=== PATIENT | male | born 1930 | race Caucasian/White ===

== ENCOUNTER 2017-09-02 14:04 | Observation (INO) | payer MEDICARE, OTHER ==
[2017-09-02] MEDS ORDERED: NS 0.9% 1000 ML* 1,000 ML IV ONE ×2 (14:45→15:33)
[2017-09-02] MEDS ORDERED: Ondansetron INJ* 2 MG/ML VIAL IV ONE (14:45)
[2017-09-02 18:02] LABS: Urine Appearance Cloudy; Urine Blood 1+ (Negative); Urine Color Yellow; Urine Ketones Negative (Negative); Urine Protein Negative (Negative); Urine Specific Gravity 1.021 (1.010-1.030); Urine Urobilinogen Negative (Negative)
[2017-09-02] MEDS ORDERED: cefTRIAXone(*) 1 GM in NS 0.9% 50 ML* 50 ML IVPB ONE (18:48)
[2017-09-02] MEDS ORDERED: Acetaminophen TAB* 325 MG PO PRN (20:04)
[2017-09-02] MEDS ORDERED: Ondansetron INJ* 2 MG/ML VIAL IV PRN (20:04)
[2017-09-02] MEDS: NS 0.9% 1000 ML* 1,000 ML IV SCH (20:33)
[2017-09-02] MEDS ORDERED: Tamsulosin CAP* 0.4 MG PO SCH (21:00)
--- NOTE | 2017-09-02 21:27 | ED ---
Elli Barcenas Gabriel, beckied for John Murillo on 09/02/17 at 1951 . Progress - Progress Note Progress Note: This patient was signed out from Dr. Cooney, pending disposition, awaiting labs. The patients condition is fair and will be admitted to [facility] with Dx of UTI , dehydration, failure to thrive, and dementia. Initially the patients family did not want lab work done but later they consented.labs pending. Course/Dx - Course Course Of Treatment: UA obtained and patient will admitted with follow up from hospitalist. - Diagnoses Provider Diagnoses: Failure to thrive, Dementia, UTI (urinary tract infection), Dehydration - Provider Notifications Discussed Care Of Patient With: Gm Coelho Time Discussed With Above Provider: 19:55 Instructed by Provider To: Admit As Inpatient The documentation as recorded by the Elli hunt Gabriel accurately reflects the service I personally performed and the decisions made by , John Murillo.
[2017-09-02] MEDS ORDERED: Heparin VIAL(*) 5000 UNITS/ML VIAL (FIVE THOUSAND) SUBCUT SCH (22:00)
[2017-09-03] MEDS: NS 0.9% 1000 ML* 1,000 ML IV SCH (00:18)
--- NOTE | 2017-09-03 00:41 | HP ---
CC: Dr. Gayle Hughes * ADMISSION HISTORY AND PHYSICAL: DATE OF ADMISSION: 09/02/17 TIME OF EVALUATION: 8:00 p.m. PRIMARY CARE PROVIDER: Dr. Gayle Hughes. CHIEF COMPLAINT: (As per daughter, Dalia) lethargic, increased confusion and weakness x1 day. HISTORY OF PRESENT ILLNESS: Mr. Tim is a demented elderly gentleman who lives in [place] with his daughter, who was brought by his daughter by car to the emergency room for progressive weakness and lethargic and confusion relative to his baseline. The patient does have dementia at baseline and is a poor communicator owing in part to his extremely poor hearing, who has not been himself as per his daughter. He is not taking his normal amount of fluids. He has a diminished appetite. He has a low-grade fever at home. He is subjectively dehydrated. He is making less urine than normal and it is concentrated. The patient is extremely afraid of needles pursuant to his PTSD from his remote history and related healthcare encounters. In the emergency room, his daughter only agreed to a urinalysis, which did show nitrites and leukocyte esterase and white blood cells and bacteria all together consistent with a urinary tract infection. At that time, she agreed for IV access and observation placement. The patient has been referred to the hospitalist service for rehydration and IV antibiotics. Mr. Tim cannot give much medical history, but in reviewing his chart, he has other medical problems including dementia, hyperlipidemia, hypertension, coronary disease, status post IL earlier this year and was stented down in [place]. The patient has stopped taking Plavix back in June of 2017, but takes the other medications detailed below. PAST MEDICAL HISTORY: 1. CAD/IL, history of IL in [facility] in February 2017. He did have angioplasty and a drug eluting stent at that time and completed 6 months of Plavix therapy. 2. Dementia. 3. Hyperlipidemia. 4. Hypertension. 5. History of multiple hernia repairs. HOME MEDICATIONS: 1. Finasteride 5 mg by mouth daily. 2. Flomax 0.4 mg by mouth daily. 3. Aspirin 81 mg by mouth daily. 4. Pravastatin 80 mg by mouth daily. ALLERGIES: No known drug allergies. FAMILY HISTORY: Reviewed, but noncontributory in this elderly man who presents to the hospital with UTI and altered mental status. SOCIAL HISTORY: The patient is a [employer] vet. He quit smoking at age 52 over 30 years ago and smoked heavily before that. He has not drank alcohol in years. He is a DNR. His daughter is Dalia Kathleen. She is the surrogate decision maker. She confirms he is a DNR and DNI. She would like to be involved in any medication change decision. REVIEW OF SYSTEMS: A review of 14 systems was done at the bedside by questioning the patient's daughter and by reviewing his chart. There were pertinent positives other than what I mentioned in the past medical history and history of present illness. PHYSICAL EXAMINATION GENERAL APPEARANCE: Elderly man, appears dehydrated with parched skin. He is unkempt and dishevelled. He is demented in appearance. He has poor eye contact. VITAL SIGNS: Temperature 98.6 degrees Fahrenheit temporally at 14:11 hours, recheck pending. Pulse 50s to 60s, respirations 16, oxygen saturation 96% on room air. Blood pressure ranged between low 100s over 50s to 140s over 40s. HEENT: Oropharynx is dry. Mucous membranes are dry. No posterior pharyngeal erythema or exudate. No oropharyngeal abscesses or erythema or exudate. NECK: Supple. No elevated JVD appreciated. No carotid bruits appreciated. CHEST: Clear breath sounds anteriorly and posteriorly. HEART: Regular rate and rhythm. No murmurs appreciated. ABDOMEN: Soft and nontender. No masses, rebound or guarding. NEUROLOGIC: Unable to cooperate with the neuro exam. Moves all extremities equally. Hypervigilant in response to even light touch. LYMPHS: No adenopathy appreciated. PSYCH: Demented and anxious consistent with low startled threshold. SKIN: Dry and intact. No lesions or rashes. ADMISSION DATA: Urinalysis consistent with positive blood, trace leukocyte esterase, positive white blood cells and rbc's by urinalysis consistent with urinary tract infection. Labs are pending at this time. IMPRESSION: Mr. Tim is an 86-year-old gentleman who has weakness, lethargy, and increased confusion with dark urine, poor oral intake and clinical presentation consistent with a urinary tract infection, who has been placed on observation status for rehydration and IV antibiotics. PLAN BY MEDICAL PROBLEMS: 1. Urinary tract infection and associated dehydration and lethargy. 2. IV ceftriaxone - 1 g now and then reevaluate. 3. Two liters normal with 1 L as bolus and the second liter to run in overnight. 4. Reevaluate clinical status at that time and make further decisions. 5. Benign prostatic hypertrophy. Continue finasteride/Flomax - follow for urinary retention - bladder scan requested. 6. Hyperlipidemia - continue pravastatin (Lipitor as auto substitute). 7. DVT prophylaxis. The patient is high risk by score, however, is very averse to needles and his daughter is refusing subcu heparin and I am obliging that request. 8. DNR/DNI. Surrogate decision maker is daughter, Dalia Sanon. Dalia can be reached at [phone]. TIME SPENT: Total time taken to admit Mr. Tim was 75 minutes, greater than half the time was spent going over the detailed history and physical examination , explaining the plan of care in great depth to the patient and his daughter. [id number]/CPS #: [id number] MTDD
[2017-09-03] MEDS ORDERED: Aspirin EC Low Dose* 81 MG TAB.EC PO SCH (09:00)
[2017-09-03] MEDS ORDERED: Finasteride TAB* 5 MG PO SCH (09:00)
[2017-09-03] MEDS ORDERED: CMCS:Pravastatin (NF) 20 MG TAB PO SCH (09:00)
--- NOTE | 2017-09-03 09:19 | PN ---
Subjective Date of Service: 09/03/17 Interval History: Patient seen and examined at bedside. Denies fever, chills, shortness of breath , chest discomfort, N/V/D or urinary symptoms. Family History: Unchanged from Admission Social History: Unchanged from Admission Past Medical History: Unchanged from Admission Objective Active Medications: Acetaminophen (Tylenol Tab*) 650 mg PO Q4H PRN Reason: FEVER/PAIN Aspirin (Aspirin Ec Low Dose*) 81 mg PO DAILY COURTNEY Finasteride (Proscar Tab*) 5 mg PO DAILY COURTNEY Sodium Chloride (Ns 0.9% 1000 Ml*) 1,000 mls @ 75 mls/hr IV PER RATE COURTNEY Ondansetron HCl (Zofran Inj*) 4 mg IV Q4H PRN Reason: NAUSEA/VOMITING Pravastatin Sodium (Pravachol (Nf)) 20 mg PO DAILY COURTNEY Tamsulosin HCl (Flomax Cap*) 0.4 mg PO BEDTIME COURTNEY Vital Signs - 8 hr 09/03/17 09/03/17 03:13 07:45 Temperature 99.1 F 98.3 F Pulse Rate 60 58 Respiratory 18 16 Rate Blood Pressure 107/44 108/49 (mmHg) O2 Sat by Pulse 95 95 Oximetry Oxygen Devices in Use Now: None Lines/Tubes/Other Access: Clean, Dry and Intact Peripheral IV - site benign Assess/Plan/Problems-Billing Assessment: Mr. Tim is an 86 yo male with PMH significant for CAD/VA, dementia, HLD, HTN, and BPH who presented to the emergency room with increased confusion and weakness. He was found to have a positive UA and was admitted to the hospital. - Patient Problems (1) UTI (urinary tract infection) Comment: - Positive UA, urine culture pending - Low grade fever last evening - Daughter has declined labs - Received 1 dose of IV ceftriaxone while in the ED - Will give another dose of ceftriaxone this PM and discharge with PO ABX (2) HTN (hypertension) Code(s): I10 - ESSENTIAL (PRIMARY) HYPERTENSION SNOMED Code(s): 20485995 Comment: - Normotensive - Continue to monitor (3) HLD (hyperlipidemia) Code(s): E78.5 - HYPERLIPIDEMIA, UNSPECIFIED SNOMED Code(s): 87852020 Comment: - Continue statin (4) CAD (coronary artery disease) Code(s): I25.10 - ATHSCL HEART DISEASE OF [place] CORONARY ARTERY W/O ANG PCTRS SNOMED Code(s): 40477536 Comment: - Denies chest pain at this time - Continue statin (5) BPH (benign prostatic hyperplasia) Code(s): N40.0 - BENIGN PROSTATIC HYPERPLASIA WITHOUT LOWER URINRY TRACT SYMP SNOMED Code(s): 456792116 Comment: - Continue Tamsulosin and finasteride (6) DVT prophylaxis Code(s): UNI5507 - SNOMED Code(s): 408113497 Comment: - Pt declined, encouraged ambulation (7) Full code status Code(s): Z78.9 - OTHER SPECIFIED HEALTH STATUS SNOMED Code(s): 033908259 Status and Disposition: OBV. Discharge to home later today if daughter feels he is back to his baseline.
[2017-09-03 11:41] VITALS: BP 113/44
[2017-09-03] MEDS ORDERED: cefTRIAXone VIAL(*) 1,000 MG in NS 0.9% 50 ML* 50 ML IVPB SCH (14:00)
--- NOTE | 2017-09-04 19:32 | DS ---
CC: Dr. Gayle Hughes * DISCHARGE SUMMARY: DATE OF ADMISSION: 09/02/17 DATE OF DISCHARGE: 09/03/17 ATTENDING PHYSICIAN: Dr. Karl Hollingsworth * (dictated by Amparo Barros NP) . PRIMARY CARE PROVIDER: Dr. Gayle Hughes. PRIMARY DIAGNOSES: 1. Urinary tract infection. 2. Increased confusion and weakness, suspect secondary to underlying urinary tract infection. SECONDARY DIAGNOSES: 1. History of coronary artery disease. 2. Dementia. 3. Hyperlipidemia. 4. Hypertension. DISCHARGE MEDICATIONS: New home medication: 1. Cefdinir 300 mg oral twice daily for 5 more days. Continued home medications: 1. Tamsulosin 0.4 mg oral daily at bedtime. 2. Finasteride 5 mg oral daily. 3. Pravastatin 20 mg oral daily. 4. Aspirin 81 mg oral daily. HISTORY OF PRESENT ILLNESS/HOSPITAL COURSE: Mr. Tim is an 86-year-old male with past medical history significant for history of coronary artery disease, dementia, hyperlipidemia, hypertension and BPH, who presented to the emergency room with his daughter with complaints of progressive weakness, lethargy and confusion, worse from his baseline. At baseline, the patient has a history of dementia and is a poor communicator due to his extremely poor hearing. The patient's daughter Dalia reported he had not been acting himself and was not taking in his normal amount of fluid and had a decreased appetite. She also reported a low-grade fever at home and subjectively thought that he was dehydrated, he was making less urine than normal and his urine was concentrated. It is to note that patient is extremely afraid of needles due to his PTSD from his remote history and related healthcare encounters. While in the emergency room, the patient's daughter only agreed to urinalysis and declined labs. The urinalysis showed nitrites, leukocyte esterase, white blood cell counts and bacteria altogether consistent with a urinary tract infection. The patient's daughter agreed for IV access to be obtained, the patient to have IV fluids and antibiotics overnight. While in the hospital, the patient received a total of 2 doses of IV ceftriaxone and IV fluids overnight. The patient's daughter felt that he returned to his baseline and declined any blood draws for laboratory evaluation. She felt that her father was stable and safe for discharge back home and was back at his baseline. Mr. Tim is stable for discharge to home today. Vital signs are as follows; temperature 98.5, heart rate 56, respiratory rate 18, O2 sat 95% on room air, blood pressure 113/44. DISCHARGE PLAN: Mr. Tim will be discharged to home. Activity as tolerated. He will be on a regular diet and has been encouraged to drink plenty of fluids to stay hydrated. The patient has been continued on Cefdinir 300 mg oral twice daily for 5 more days to complete a 7-day course of antibiotics. The patient's daughter has been instructed to call Dr. Hughes's office on Tuesday to set up a followup appointment for next week. He has been resumed on his usual home medications. This is a summarized report of complex medical history and hospital stay. For further details, please see the entire medical record. TIME SPENT: Time for this discharge was approximately 60 minutes, greater than half of that was spent [id number] with the patient and his daughter discussing discharge plans and instructions. CONDITION ON DISCHARGE: Stable. Reviewed by TRUONG HAN 09/06/171958 [id number]/[facility] #: [id number] PAMELA
== END 2017-09-03 16:15 | disposition home or self-care (01) ==
LOC: ED 14:04 → MED 20:04
PROVIDERS: ADMIT Internal Medicine; ATTEND Internal Medicine
DX: N39.0 Urinary tract infection, site not specified (principal); R53.1 Weakness; R41.0 Disorientation, unspecified; I25.10 Atherosclerotic heart disease of native coronary artery without angina pectoris; I10 Essential (primary) hypertension; E78.5 Hyperlipidemia, unspecified; F03.90 Unspecified dementia, unspecified severity, without behavioral disturbance, psychotic disturbance, mood disturbance, and anxiety; Z79.899 Other long term (current) drug therapy; Z79.82 Long term (current) use of aspirin; I25.2 Old myocardial infarction; Z87.891 Personal history of nicotine dependence; N40.0 Benign prostatic hyperplasia without lower urinary tract symptoms
CPT/HCPCS: 81003; 81015; 87086; 93005; 96374; 96376; 99284; A9270-GY; G0378; G8978-GP-CI; G8979-GP-CI; G8980-GP-CI; J0696

== ENCOUNTER 2017-11-02 01:53 | Emergency (ER) | payer OTHER ==
[2017-11-02 03:12] LABS: ABS Basophils 0 10^3/ul (0-0.2); ABS Eosinophils 0.1 10^3/ul (0-0.6); ABS Lymphocytes 1.4 10^3/ul (1.0-4.8); ABS Monocytes 0.6 10^3/ul (0-0.8); ABS Nucleated RBC 0 10^3/ul; Eosinophil % 2.2 % (0-6); Hematocrit 40 % (42-52); Hemoglobin 13.9 g/dl (14.0-18.0); Mean Corpuscular HGB Conc 34 g/dl (31-36); Mean Corpuscular Hemoglobin 31 pg (27-31); Mean Corpuscular Volume 90 fL (80-94); Mean Platelet Volume 7 um3 (7.4-10.4); Nucleated Red Blood Cells % 0; Platelet Count 196 10^3/ul (150-450); Red Blood Count 4.52 10^6/ul (4.0-5.4); Red Cell Distribution Width 14 % (10.5-15); White Blood Count 6.1 10^3/ul (3.5-10.8)
[2017-11-02 03:19] LABS: INR 0.95 (0.77-1.02)
--- NOTE | 2017-11-02 03:51 | ED ---
Noah Barcenas Angela, scribed for Ronny Rojas MD on 11/02/17 at 0225 . HPI Chest Pain - HPI Summary HPI Summary: This pt is a 86 y/o male presenting to [facility] via EMS from [place] c/o chest pain. Per [place] staff, pt woke up today for a snack when he c/o chest pain. Pt currently denies any chest pain. PMHx: cardiac stent. HPI IS LIMITED DUE TO LEVEL 5 CAVEAT - pt has dementia. - History of Current Complaint Chief Complaint: EDChestPainROMI Time Seen by Provider: 11/02/17 01:57 Hx Obtained From: Patient Hx From Patient Unobtainable Due To: Other - LEVEL 5 CAVEAT - pt has dementia Onset/Duration: Still Present Timing: Lasting Hours Current Severity: None Pain Intensity: 0 Pain Scale Used: 0-10 Numeric Aggravating Factor(s): Nothing Alleviating Factor(s): Nothing Associated Signs and Symptoms: Positive: Chest Pain - Allergy/Home Medications Allergies/Adverse Reactions: Allergies Allergy/AdvReac Type Severity Reaction Status Date / Time No Known Allergies Allergy Verified 09/02/17 14:11 PMH/Surg Hx/FS Hx/Imm Hx Cardiovascular History: Reports: Hx Coronary Artery Disease, Hx Hypertension, Hx Myocardial Infarction - 3 weeks ago Respiratory History: Reports: Hx Asthma GI History: Reports: Other GI Disorders - Hx Hernia Repair History: Reports: Hx Benign Prostatic Hyperplasia - Flomax; if not BPH, then urgency and hesitation and some incontinence Sensory History: Reports: Hx Deafness Denies: Hx Contacts or Glasses, Hx Hearing Aid Opthamlomology History: Denies: Hx Contacts or Glasses Neurological History: Reports: Hx Dementia Psychiatric History: Reports: Hx Post Traumatic Stress Disorder, Other Psychiatric Issues/Disorders - phobic about needles, iv insertions, etc. - Surgical History Surgery Procedure, Year, and Place: Multiple Hernia Repairs. [address] Infectious Disease History: No Infectious Disease History: Denies: Traveled Outside the [place] in Last 30 Days - Family History Known Family History: Positive: Unknown - due to level 5 caveat - pt has dementia - Social History Alcohol Use: None Hx Substance Use: No Substance Use Type: Reports: None Smoking Status (MU): Former Smoker Review of Systems - ROS Summary Review of Systems Summary: ROS IS LIMITED DUE TO LEVEL 5 CAVEAT - pt has dementia Negative: Fever, Chills Positive: Chest Pain All Other Systems Reviewed And Are Negative: No Physical Exam - Summary Physical Exam Summary: VITAL SIGNS: Reviewed. GENERAL: Patient is a well-developed and nourished male who is lying comfortable in the stretcher. Patient is not in any acute respiratory distress. HEAD AND FACE: No signs of trauma. No ecchymosis, hematomas or skull depressions. No sinus tenderness. EYES: PERRLA, EOMI x 2, No injected conjunctiva, no nystagmus. EARS: Hearing grossly intact. Ear canals and tympanic membranes are within normal limits. MOUTH: Oropharynx within normal limits. NECK: Supple, trachea is midline, no adenopathy, no JVD, no carotid bruit, no c- spine tenderness, neck with full ROM. CHEST: Symmetric, no tenderness at palpation LUNGS: Clear to auscultation bilaterally. No wheezing or crackles. CVS: Regular rate and rhythm, S1 and S2 present, no murmurs or gallops appreciated. ABDOMEN: Soft, non-tender. No signs of distention. No rebound no guarding, and no masses palpated. Bowel sounds are normal. EXTREMITIES: FROM in all major joints, no edema, no cyanosis or clubbing. NEURO: Alert and oriented only to name. Does not know where he is. No acute neurological deficits. Speech is normal and follows commands. SKIN: Dry and warm Triage Information Reviewed: Yes Vital Signs On Initial Exam: Initial Vitals Temp Pulse Resp BP Pulse Ox 98.7 F 57 17 154/61 95 11/02/17 01:55 11/02/17 01:55 11/02/17 01:55 11/02/17 01:55 11/02/17 01:55 Vital Signs Reviewed: Yes Completion Of Physical Exam Limited Due To: Dementia, Level 5 - due to dementia Diagnostics - Vital Signs Vital Signs Temp Pulse Resp BP Pulse Ox 11/02/17 01:55 98.7 F 57 17 154/61 95 - Laboratory Result Diagrams: 11/02/17 03:00 11/02/17 03:00 Lab Statement: Any lab studies that have been ordered have been reviewed, and results considered in the medical decision making process. - Radiology Chest XR Xray Interpretation: No Acute Changes - no acute process Radiology Interpretation Completed By: ED Physician - EKG 01:50 Cardiac Rate: Bradycardia EKG Rhythm: Sinus Bradycardia - at [address] Segment: Non-Specific - ST changes in inferior leads. Chest Pain Course/Dx - Course Course Of Treatment: Pt is a 86 y/o male who presents from [place] c/o chest pain. Chest XR is negative. EKG shows sinus bradycardia with non-specific ST changes in inferior leads. Pt will be discharged to home with follow up from her PCP. - Diagnoses Provider Diagnoses: Atypical chest pain Discharge - Discharge Plan Condition: Stable Disposition: HOME Patient Education Materials: Chest Pain (ED) Referrals: Gayle Hughes MD [Primary Care Provider] - 3 Days Additional Instructions: Please follow up with your primary care provider. RETURN TO EMERGENCY DEPARTMENT FOR ANY NEW OR WORSENING SYMPTOMS. The documentation as recorded by the Noah hunt Angela accurately reflects the service I personally performed and the decisions made by Bob roman Abdul, MD.
[2017-11-02 04:00] VITALS: BP 118/51
--- NOTE | 2017-11-02 08:20 | RAD ---
Indication: Chest pain. Asthma. Hypertension. Comparison: March 16, 2016 Technique: Upright AP 0248 hours Report: Suboptimal inspiration for this patient compared with the prior exam with associated mild perihilar subsegmental atelectasis. No alveolar consolidation concerning for pneumonia. No suspicious focal pulmonary lesion. Negative for pleural effusion or pneumothorax. The heart, pulmonary vasculature, and mediastinal contours are unremarkable. IMPRESSION: Suboptimal inspiration compared with the prior exam with associated mild subsegmental atelectasis.
== END 2017-11-02 04:03 | disposition home or self-care (01) ==
LOC: ED 01:53
DX: R07.89 Other chest pain (principal); Z87.891 Personal history of nicotine dependence
CPT/HCPCS: 36415; 71045; 80053; 83735; 84484; 85025; 85610; 85730; 93005; 99283

== ENCOUNTER 2018-01-01 10:42 | Observation (INO) | payer OTHER ==
[2018-01-01 11:23] LABS: ABS Basophils 0.1 10^3/ul (0-0.2); ABS Eosinophils 0.1 10^3/ul (0-0.6); ABS Lymphocytes 1.3 10^3/ul (1.0-4.8); ABS Monocytes 0.7 10^3/ul (0-0.8); ABS Neutrophils 4.2 10^3/ul (1.5-7.7); ABS Nucleated RBC 0 10^3/ul; Hematocrit 39 % (42-52); Hemoglobin 13.3 g/dl (14.0-18.0); Lymphocyte % 20.8 % (25-47); Mean Corpuscular HGB Conc 34 g/dl (31-36); Mean Corpuscular Hemoglobin 31 pg (27-31); Mean Corpuscular Volume 91 fL (80-94); Mean Platelet Volume 7.1 um3 (7.4-10.4); Nucleated Red Blood Cells % 0; Platelet Count 173 10^3/ul (150-450); Red Blood Count 4.26 10^6/ul (4.0-5.4); Red Cell Distribution Width 14 % (10.5-15); White Blood Count 6.4 10^3/ul (3.5-10.8)
--- NOTE | 2018-01-01 11:37 | RAD ---
Indication: Syncope. Altered mental status. Comparison: November 02, 2017 and March 16, 2016 Technique: Upright AP 1110 hours Report: Elevated lung volumes. Mild airspace consolidation at the medial RIGHT lower lung zone and peripheral LEFT lung base without change compared with the November 02, 2017 exam is most suspicious for atelectasis. Negative for pleural effusion or pneumothorax. Upper normal heart size. Unremarkable central pulmonary vasculature and mediastinal contours. IMPRESSION: Stigmata of probable chronic obstructive pulmonary disease. Mild bibasilar airspace consolidation unchanged compared with November 02, 2017 exam is most suspicious for atelectasis.
[2018-01-01 11:44] LABS: EGFR Non-African American 69.4 (>60)
--- NOTE | 2018-01-01 11:59 | RAD ---
Indication: Fall. Syncope. Comparison: No relevant prior exams available on the [facility] PACS for comparison. Technique: Noncontrast CT vertex of skull through foramen magnum. Report: 3.3 x 3.2 cm arachnoid cyst at the LEFT middle cranial fossa anteriorly without concern. Mild prominence of the cerebral sulci and cerebellar fissures reflecting atrophy. Proportional mild enlargement of the ventricles. Patent basal cisterns. Decreased density in the periventricular and subcortical white matter while non-specific is most likely due to chronic microangiopathy. Negative for kessler matter white matter obscuration, intra or extra-axial hemorrhage, or mass effect. No suspicious finding of the calvarium or skull base. Clear visualized paranasal sinuses and mastoid air spaces. Negative for scalp hematoma. IMPRESSION: 1. No CT evidence for traumatic brain injury or acute intracranial process. 2. 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 3. LEFT middle cranial fossa arachnoid cyst.
--- NOTE | 2018-01-01 12:04 | RAD ---
INDICATION: Syncope; fall. COMPARISON: No relevant prior exams available on the [facility] PACS for comparison. TECHNIQUE: Multidetector CT images foramen magnum to lung apices without contrast. Multiplanar reformation. REPORT: Normal vertebral alignment accounting for exam positioning without spondylolisthesis or subluxation at any level. Negative for cervical vertebral body or posterior element fracture. Negative for paravertebral hematoma. Multilevel degenerative spondylosis with disc space narrowing most prominent at C5-C6 moderate in severity. Multilevel advanced facet joint osteoarthritis. Congenitally generous pedicles lengths mitigating against acquired central canal stenosis. At C3-C4 uncinate process spurring and facet joint osteoarthritis results in mild bilateral foraminal stenosis. IMPRESSION: No CT evidence for traumatic cervical spine injury.
[2018-01-01 12:05] LABS: Urine Appearance Clear; Urine Blood Negative (Negative); Urine Color Yellow; Urine Ketones Negative (Negative); Urine Protein Negative (Negative); Urine Specific Gravity 1.018 (1.010-1.030); Urine Urobilinogen Negative (Negative)
--- NOTE | 2018-01-01 12:56 | RAD ---
Indication: RIGHT hip pain post fall. Comparison: No relevant prior exams available on the [facility] PACS for comparison. Technique: AP pelvis and AP and frog-leg lateral views RIGHT hip. Report: The RIGHT hip is normally located. No fracture of the RIGHT proximal femur or pelvis or pelvic joint diastases evident. Both hips are remarkable for osteophytosis and moderate axial joint space narrowing. Unremarkable soft tissue contours. IMPRESSION: No radiographic evidence for RIGHT hip fracture. 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
--- NOTE | 2018-01-01 14:13 | RAD ---
Indication: RIGHT hip pain post fall. Negative radiographs. Assess for occult fracture. Comparison: Radiographs of the same date. Technique: Multidetector CT pelvis without contrast. Multiplanar reformation with bone algorithm. Report: Negative for soft tissue hematoma or free pelvic fluid. LEFT posterior lateral urinary bladder diverticulum without CT evidence for acute inflammatory change. Large prostate. Symmetric seminal vesicles. Negative for ureteral dilatation. Mild diverticulosis of the sigmoid colon without acute inflammatory change. Negative for cortical disruption or suspicious trabecular irregularity at the RIGHT proximal femur or pelvis to indicate fracture. Normal articular alignment. Both hips are remarkable for moderate osteophytosis and axial joint space narrowing. Negative for significant loss of femoral head sphericity. Subchondral sclerosis and cystic change at the superior medial RIGHT femoral head. No suggestion of significant joint effusions. IMPRESSION: 1. No CT evidence for RIGHT hip or pelvic fracture. 2. 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
[2018-01-01] MEDS ORDERED: Acetaminophen TAB* 325 MG PO PRN (16:12)
--- NOTE | 2018-01-01 20:44 | HP ---
CC: Dr. Hughes; Dr. Granger; Dr. Mckenzie * HISTORY AND PHYSICAL: DATE OF ADMISSION: 01/01/18 PRIMARY CARE PROVIDER: Dr. Hughes. ATTENDING PHYSICIAN WHILE IN THE HOSPITAL: Dr. Karl Hollingsworth * (report being dictated by Fili Lu NP). CONSULTING CARDIOLOGISTS: 1. Dr. Granger. 2. Dr. Mckenzie. CHIEF COMPLAINT: Syncope. HISTORY OF PRESENT ILLNESS: I would like to preface this report by saying that the patient really has an underlying significant amount of dementia. He is unable to give me much history. He also carries a history of CAD, PA, hypertension, hyperlipidemia, and has also been having episodes of syncope. He has had about 4 episodes of syncope in the last several months and he had another episode today at [facility], that is why he was here. He has not really able to tell me what happened. He is denying any discomfort, chest pain, shortness of breath. At the moment, he says he is feeling fine. His only complaint is when he gets up and walks, he is getting some right hip pain. He denies any falls that he is aware of but again the dementia, I question the validity of his history giving ability. The reason for coming in today according to the [facility], he had an episode of unresponsiveness. He was shaking, slurring his words, and I guess according to daughter, this has been similar to his episodes of fainting. In the last several months, he has had 3 episodes. He was evaluated by Cardiology about a month ago, had a Holter monitor with an average heart rate of 55. The daughter states that they have noted that his resting heart rate is becoming lower and lower and he has been dropping even lower and sometimes into the 40s with his heart rate. She was concerned because of this and so was [facility] and with what happened today, they sent him into the hospital. There have been no reports of medication changes. No abdominal pain was reported. No vomiting or diarrhea. No dysuria was reported by nursing staff. Per the daughter, there have been no reports of cold symptoms or fevers. The patient came into the emergency department today, was evaluated, and there was concern for the syncope and we were asked to evaluate for admission. PAST MEDICAL HISTORY: Significant for: 1. CAD. 2. PA. 3. Dementia. 4. Hyperlipidemia. 5. Hypertension. PAST SURGICAL HISTORY: 1. The patient has had cardiac catheterization. 2. He has had hernia repair. MEDICATIONS: ALL MEDICATION CHANGES NEED TO BE DISCUSSED WITH THE PATIENT'S HEALTHCARE PROXY. Home medications include: 1. Benld 1 capsule p.o. daily. 2. Flomax 0.4 mg p.o. at bedtime. 3. Deep Blue cap, 1 capsule p.o. at bedtime. 4. Microplex 1 capsule p.o. b.i.d. 5. xEO Gigi 1 capsule p.o. b.i.d. 6. DDR Prime 1 capsule p.o. at bedtime. 7. Proscar 5 mg p.o. at bedtime. 8. Taurine 1000 mg p.o. daily. 9. 1 capsule p.o. daily. 10. Uijg9Hrs 1 capsule p.o. q.a.m. 11. Pravachol 20 mg daily. 12. Aspirin 81 mg daily. 13. Alpha CRS 1 capsule p.o. b.i.d. ALLERGIES TO MEDICATIONS: Include no known drug allergies. FAMILY HISTORY: Unable to be obtained from the patient. SOCIAL HISTORY: He is a former smoker. He does not drink alcohol. He is a DNR. His surrogate decision maker is his daughter, Dalia. REVIEW OF SYSTEMS: Unable to be obtained from the patient given the underlying dementia. PHYSICAL EXAMINATION GENERAL: At this time, Mr. Tim is an 87-year-old male patient. He is sitting in the ER stretcher. He appears to be well-nourished, well-developed, does not appear to be in any acute distress. VITAL SIGNS: Blood pressure 142/68, pulse 50, respirations 12, O2 sat 96%, temperature 98.1. HEENT: Head: Atraumatic, normocephalic. Eyes: EOMs are intact. Sclerae anicteric and not pale. Throat: Oral mucosa appears to be moist. No oropharyngeal erythema. NECK: Supple. LUNGS: Clear to auscultation bilaterally. No wheezes, rales, or rhonchi. HEART: Sounds S1, S2. He is bradycardic. ABDOMEN: Soft. It was flat, nontender. Bowel sounds present. EXTREMITIES: Pulses are 2+ throughout. He is moving all 4 extremities with 5/ 5 strength. In the right hip, with manipulation, external rotation, internal rotation, flexion, and extension, he has no pain. In the inguinal area, I did not appreciate any bulge noted there or any signs of hernia. NEUROLOGICAL: He is awake. He knows his birthday. He knows he is in the hospital. He does not know what town he is. He does not know the year. He knows his name. His speech was clear. Tongue midline. His time study clerk were equal. He had no gross obvious focal deficits. SKIN: Intact. DIAGNOSTIC STUDIES/LAB DATA: WBC 6.4, RBC of 4.26, hemoglobin 13.3, hematocrit of 39, platelet count of 173. The sodium was 138, potassium 4.0, chloride 109, bicarb 25, BUN 18, creatinine 1.02, glucose 103, lactate 0.8, calcium 8.4. Total bili 0.4, AST 14, ALT 11, alk phos 54. Troponins were 0, repeat was 0.01, repeat troponin was 0. Albumin 3.5. Urine was negative. He had multiple imaging in the ED, starting with chest x-ray, showed stigmata of probable chronic obstructive pulmonary disease, mild bibasilar air space consolidation, unchanged compared with November 02, disease more suspicious for atelectasis. He had a brain CT obtained today, which revealed no CT evidence for traumatic brain injury or acute intracranial process, mild involutional change and stigmata of chronic small vessel ischemic change. Left middle cerebral fossa arachnoid cyst. Cervical spine CT show showed no CT evidence of traumatic cervical spine injury. He had a hip, pelvis x-ray obtained today, which showed no radiographic evidence for right hip fracture. 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 He had an EKG obtained today as well, which revealed sinus bradycardia at a rate of 53, no ST elevations or T-wave inversions were noted. Previous EKG showed a sinus bradycardia at rate of 57 similar. Old medical records were reviewed. ASSESSMENT AND PLAN: Mr. Tim is an 87-year-old male patient coming into the emergency department today with complaint of syncopal episode and bradycardia. We were asked to evaluate for admission. He will be admitted under observation status for: 1. Syncope. Again, I am concerned that he may having bradycardia, could be contributing to this. He has been evaluated recently with the Holter monitor. His average heart rate is 55. My plan at this point is to go ahead and get in touch with Cardiology. I touched base with Dr. Granger, who is signing him out to Dr. Mckenzie, the patient's school office manager. I have placed a consult directly to Dr. Mckenzie. We will place him on telemetry. I will get an echo. I will check his mag, TSH. He is asymptomatic currently. I do not think he requires any pacing. His blood pressure is stable. He does not need atropine, he is not having any symptoms. So, we will continue to follow him and I will get in touch with Cardiology. 2. Coronary artery disease. Continue his aspirin, statin therapy, obviously no beta blockers due to the heart rate. 3. History of dementia. Continue with supportive care. 4. Hyperlipidemia. Continue with statin therapy. 5. Hypertension. Blood pressure is stable. 6. DVT prophylaxis. Daughter was adamantly against needles and injections in the patient and did not want heparin. She requested PT eval, early embolization , and I have ordered SCDs. I did explain to her that he is high risk for blood clots but at this point, she would like to try nonpharmacological methods of DVT prevention which we will honor. She is accepting all the risks for DVT. I did explain to her the risk. 7. Code status. He is a DNR. 8. Fluids, electrolytes, and nutrition. He can have a regular diet. TIME SPENT: On the admission was 60 minutes, greater than half the time was spent [id number] with the patient obtaining my history and physical, other half of the time was spent going over the plan of care with the patient and implementing the plan of care. I did discuss the plan of care with my attending, Dr. Hollingsworth; he is in agreement. FILI LU NP [id number]/[facility] #: [id number] PAMELA
[2018-01-01] MEDS ORDERED: NS 0.9% 1000 ML* 1,000 ML IV SCH (20:45)
[2018-01-01] MEDS ORDERED: Tamsulosin CAP* 0.4 MG PO SCH (21:00)
[2018-01-01] MEDS ORDERED: Finasteride TAB* 5 MG PO SCH (21:00)
--- NOTE | 2018-01-01 22:11 | ED ---
Jhonatan Barcenas Tiffany, scribed for Cortez Cooney MD on 01/01/18 at 1129 . Syncope/Near Syncope - HPI Summary HPI Summary: The patient is an 87 year old male BIBA complains of syncopal episode s/p falling while walking at 10:00 today. Symptoms aggravated by nothing. Symptoms alleviated by nothing. Patient is a resident at [facility]. Per alf staff, patient was not rousable for about 8 minutes. Reports right hip pain, but not unusual for patient. Denies back pain. Hx of dementia. - History Of Current Complaint Chief Complaint: EDSyncope Time Seen by Provider: 01/01/18 11:01 Hx Obtained From: Patient, Other: - intermediate staff Onset/Duration: Sudden Onset, Lasting Minutes - about 8 minutes, Resolved Context: Witnessed - By alf staff Activity At Onset: Other - Walking Aggravating Factor(s): Nothing Alleviating Factor(s): Nothing Associated Signs And Symptoms: Negative - Back pain, Other - right hip pain - Allergies/Home Medications Allergies/Adverse Reactions: Allergies Allergy/AdvReac Type Severity Reaction Status Date / Time No Known Allergies Allergy Verified 09/02/17 14:11 Home Medications: Home Medications Alph Crs 1 cap PO BID 01/01/18 [History Confirmed 01/01/18] Aspirin 81 mg CHEW TAB* [Aspirin Low Dose TAB*] 81 mg PO QAM 01/01/18 [History Confirmed 01/01/18] Ddr Prime 1 cap PO BEDTIME 01/01/18 [History Confirmed 01/01/18] Deep Blue Cap 1 cap PO BEDTIME 01/01/18 [History Confirmed 01/01/18] Finasteride TAB* [Proscar TAB*] 5 mg PO BEDTIME 01/01/18 [History Confirmed ] Microplex Vm2 1 cap PO BID 01/01/18 [History Confirmed 01/01/18] Ariel 2 Max 1 cap PO QAM 01/01/18 [History Confirmed 01/01/18] Pb Assist 1 cap PO QAM 01/01/18 [History Confirmed 01/01/18] Pravastatin (NF) [Pravachol (NF)] 20 mg PO DAILY 01/01/18 [History Confirmed ] [place] Lecithin 1200mg 1 cap PO BEDTIME 01/01/18 [History Confirmed 01/01/18] Tamsulosin CAP* [Flomax CAP*] 0.4 mg PO BEDTIME 01/01/18 [History Confirmed ] Taurine [Gigi Taurine] 1,000 mg PO QAM 01/01/18 [History Confirmed 01/01/18] Xeomega 1 cap PO BID 01/01/18 [History Confirmed 01/01/18] PMH/Surg Hx/FS Hx/Imm Hx Previously Healthy: No Cardiovascular History: Reports: Hx Coronary Artery Disease, Hx Hypertension, Hx Myocardial Infarction - 3 weeks ago Respiratory History: Reports: Hx Asthma GI History: Reports: Other GI Disorders - Hx Hernia Repair History: Reports: Hx Benign Prostatic Hyperplasia - Flomax; if not BPH, then urgency and hesitation and some incontinence Sensory History: Reports: Hx Contacts or Glasses, Hx Deafness Opthamlomology History: Reports: Hx Contacts or Glasses Neurological History: Reports: Hx Dementia Psychiatric History: Reports: Hx Post Traumatic Stress Disorder, Other Psychiatric Issues/Disorders - phobic about needles, iv insertions, etc. - Surgical History Surgery Procedure, Year, and Place: Multiple Hernia Repairs. [address] Infectious Disease History: No Infectious Disease History: Denies: Traveled Outside the [place] in Last 30 Days - Family History Known Family History: Positive: Other - due to level 5 caveat - pt has dementia - Social History [facility] [place] Alcohol Use: None Hx Substance Use: No Substance Use Type: Reports: None Hx Tobacco Use: Yes Smoking Status (MU): Former Smoker Review of Systems Negative: Fever, Chills Negative: Erythema Negative: Sore Throat Negative: Chest Pain Negative: Shortness Of Breath, Cough Negative: Abdominal Pain, Vomiting, Nausea Negative: dysuria, hematuria Positive: Other - Right hip pain. Negative: Myalgia, Edema Negative: Rash Neurological: Negative - DIzziness Positive: Syncope - Since resolved, lasted about 8 minutes All Other Systems Reviewed And Are Negative: Yes Physical Exam - Summary Physical Exam Summary: Constitutional: Well-developed, Well-nourished, Alert. (-) Distressed Skin: Warm, Dry HENT: Normocephalic; Atraumatic Eyes: Conjunctiva normal Neck: Musculoskeletal ROM normal neck. (-) JVD, (-) Stridor, (-) Tracheal deviation Cardio: Rhythm regular, rate normal, Heart sounds normal; Intact distal pulses; The pedal pulses are 2+ and symmetric. Radial pulses are 2+ and symmetric. (-) Murmur Pulmonary/Chest wall: Effort normal. (-) Respiratory distress, (-) Wheezes, (-) Rales Abd: Soft, (-) Tenderness, (-) Distension, (-) Guarding, (-) Rebound Musculoskeletal: (-) Edema. Right lateral hip tenderness, pain with ROM. Lymph: (-) Cervical adenopathy Neuro: Alert, Oriented x3 Psych: Mood and affect Normal Triage Information Reviewed: Yes Vital Signs On Initial Exam: Initial Vitals Temp Pulse Resp BP Pulse Ox 98.1 F 48 14 126/64 95 01/01/18 10:47 01/01/18 10:47 01/01/18 10:47 01/01/18 10:47 01/01/18 10:47 Vital Signs Reviewed: Yes Diagnostics - Vital Signs Vital Signs Temp Pulse Resp BP Pulse Ox 01/01/18 10:47 98.1 F 48 14 126/64 95 - Laboratory Lab Results: Lab Results 01/01/18 01/01/18 01/01/18 Range/Units 11:15 11:15 11:15 WBC 6.4 (3.5-10.8) 10^3/ul RBC 4.26 (4.0-5.4) 10^6/ul Hgb 13.3 L (14.0-18.0) g/dl Hct 39 L (42-52) % MCV 91 (80-94) fL MCH 31 (27-31) pg MCHC 34 (31-36) g/dl RDW 14 (10.5-15) % Plt Count 173 (150-450) 10^3/ul MPV 7.1 L (7.4-10.4) um3 Neut % (Auto) 65.2 (38-83) % Lymph % (Auto) 20.8 L (25-47) % [place] % (Auto) 11.1 H (0-7) % Eos % (Auto) 2.0 (0-6) % Baso % (Auto) 0.9 (0-2) % Absolute Neuts (auto) 4.2 (1.5-7.7) 10^3/ul Absolute Lymphs (auto) 1.3 (1.0-4.8) 10^3/ul Absolute Monos (auto) 0.7 (0-0.8) 10^3/ul Absolute Eos (auto) 0.1 (0-0.6) 10^3/ul Absolute Basos (auto) 0.1 (0-0.2) 10^3/ul Absolute Nucleated RBC 0 10^3/ul Nucleated RBC % 0 Sodium 138 L (139-145) mmol/L Potassium 4.0 (3.5-5.0) mmol/L Chloride 109 (101-111) mmol/L Carbon Dioxide 25 (22-32) mmol/L Anion Gap 4 (2-11) mmol/L BUN 18 (6-24) mg/dL Creatinine 1.02 (0.67-1.17) mg/dL Est GFR ( Amer) 89.3 (>60) Est GFR (Non-Af Amer) 69.4 (>60) BUN/Creatinine Ratio 17.6 (8-20) Glucose 103 H (70-100) mg/dL Lactic Acid 0.8 (0.5-2.0) mmol/L Calcium 8.4 L (8.6-10.3) mg/dL Magnesium 2.1 (1.9-2.7) mg/dL Total Bilirubin 0.40 (0.2-1.0) mg/dL AST 14 (13-39) U/L ALT 11 (7-52) U/L Alkaline Phosphatase 54 (34-104) U/L Troponin I 0.01 (<0.04) ng/mL Total Protein 6.2 L (6.4-8.9) g/dL Albumin 3.5 (3.2-5.2) g/dL Globulin 2.7 (2-4) g/dL Albumin/Globulin Ratio 1.3 (1-3) TSH 3.88 (0.34-5.60) mcIU/mL Urine Color Urine Appearance Urine pH (5-9) Ur Specific [employer] (1.010-1.030) Urine Protein (Negative) Urine Ketones (Negative) Urine Blood (Negative) Urine Nitrate (Negative) Urine Bilirubin (Negative) Urine Urobilinogen (Negative) Ur Leukocyte Esterase (Negative) Urine Glucose (Negative) Urine Ascorbic Acid (Negative) 01/01/18 01/01/18 Range/Units 11:54 14:30 WBC (3.5-10.8) 10^3/ul RBC (4.0-5.4) 10^6/ul Hgb (14.0-18.0) g/dl Hct (42-52) % MCV (80-94) fL MCH (27-31) pg MCHC (31-36) g/dl RDW (10.5-15) % Plt Count (150-450) 10^3/ul MPV (7.4-10.4) um3 Neut % (Auto) (38-83) % Lymph % (Auto) (25-47) % [place] % (Auto) (0-7) % Eos % (Auto) (0-6) % Baso % (Auto) (0-2) % Absolute Neuts (auto) (1.5-7.7) 10^3/ul Absolute Lymphs (auto) (1.0-4.8) 10^3/ul Absolute Monos (auto) (0-0.8) 10^3/ul Absolute Eos (auto) (0-0.6) 10^3/ul Absolute Basos (auto) (0-0.2) 10^3/ul Absolute Nucleated RBC 10^3/ul Nucleated RBC % Sodium (139-145) mmol/L Potassium (3.5-5.0) mmol/L Chloride (101-111) mmol/L Carbon Dioxide (22-32) mmol/L Anion Gap (2-11) mmol/L BUN (6-24) mg/dL Creatinine (0.67-1.17) mg/dL Est GFR ( Amer) (>60) Est GFR (Non-Af Amer) (>60) BUN/Creatinine Ratio (8-20) Glucose (70-100) mg/dL Lactic Acid (0.5-2.0) mmol/L Calcium (8.6-10.3) mg/dL Magnesium (1.9-2.7) mg/dL Total Bilirubin (0.2-1.0) mg/dL AST (13-39) U/L ALT (7-52) U/L Alkaline Phosphatase (34-104) U/L Troponin I 0.00 (<0.04) ng/mL Total Protein (6.4-8.9) g/dL Albumin (3.2-5.2) g/dL Globulin (2-4) g/dL Albumin/Globulin Ratio (1-3) TSH (0.34-5.60) mcIU/mL Urine Color Yellow Urine Appearance Clear Urine pH 6.0 (5-9) Ur Specific [place] [employer] 1.018 (1.010-1.030) Urine Protein Negative (Negative) Urine Ketones Negative (Negative) Urine Blood Negative (Negative) Urine Nitrate Negative (Negative) Urine Bilirubin Negative (Negative) Urine Urobilinogen Negative (Negative) Ur Leukocyte Esterase Negative (Negative) Urine Glucose Negative (Negative) Urine Ascorbic Acid * A (Negative) Result Diagrams: 01/01/18 11:15 01/01/18 11:15 Lab Statement: Any lab studies that have been ordered have been reviewed, and results considered in the medical decision making process. - Radiology CXR Radiology Interpretation Completed By: Radiologist - Stigmata of probable chronic obstructive pulmonary disease. Mild bibasilar airspace consolidation unchanged compared with November 02, 2017 exam is most suspicious for atelectasis. ED physician has reviewed this report. Hip/Pelvis Radiology Interpretation Completed By: Radiologist - No radiographic evidence for RIGHT hip fracture. 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 ED physician has reviewed this report. - CT Cervical spine CT Interpretation Completed By: Radiologist - No CT evidence for traumatic cervical spine injury. ED physician has reviewed this report. Brain CT Interpretation Completed By: Radiologist - 1. No CT evidence for traumatic brain injury or acute intracranial process. 2. 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 3. LEFT middle cranial fossa arachnoid cyst. ED physician has reviewed this report. Pelvis CT Interpretation Completed By: Radiologist - 1. No CT evidence for RIGHT hip or pelvic fracture. 2. 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 ED physician has reviewed this report. - EKG 11:22 Cardiac Rate: Bradycardia - 53 BPM EKG Rhythm: Sinus Bradycardia EKG Interpretation: Non STEMI Course/Dx Course Of Treatment: Dr. Hughes called at 12:29 to say that patient needs to be able to walk before going back to [facility]. daughter receptive to conversation with hospitalist. - Diagnoses Provider Diagnoses: Symptomatic bradycardia, Chronic hip pain - Physician Notifications Discussed Care of Patient With: Gayle Hughes Time Discussed With Above Provider: 12:29 Instructed by Provider To: Other - Dr. Hughes, patient's primary care provider, called at 12:29 to say that patient needs to be able to walk before going back to [facility]. Dr. Hughes says that patient recently had halter monitor, was evaluated by cardiology for passing out spell. Hospitalization is against patients advanced directives per Dr. Hughes. States limited medical intervention. Dr. Hollingsworth, hospitalist, aware of patient at 15:36. Discharge - Sign-Out/Discharge Documenting (check all that apply): Discharge/Admit/Transfer - Discharge Plan Condition: Good Disposition: ADMITTED TO [facility] - Billing Disposition and Condition Condition: GOOD Disposition: [facility] [place] The documentation as recorded by the Jhonatan hunt Tiffany accurately reflects the service I personally performed and the decisions made by me, Cortez Cooney MD.
[2018-01-02 06:07] LABS: ABS Basophils 0 10^3/ul (0-0.2); ABS Eosinophils 0.2 10^3/ul (0-0.6); ABS Lymphocytes 1.4 10^3/ul (1.0-4.8); ABS Monocytes 0.7 10^3/ul (0-0.8); ABS Neutrophils 4.6 10^3/ul (1.5-7.7); ABS Nucleated RBC 0 10^3/ul; Eosinophil % 2.5 % (0-6); Hematocrit 41 % (42-52); Hemoglobin 14.3 g/dl (14.0-18.0); Lymphocyte % 20.1 % (25-47); Mean Corpuscular HGB Conc 35 g/dl (31-36); Mean Corpuscular Hemoglobin 32 pg (27-31); Mean Corpuscular Volume 91 fL (80-94); Mean Platelet Volume 7.1 um3 (7.4-10.4); Nucleated Red Blood Cells % 0; Platelet Count 198 10^3/ul (150-450); Red Cell Distribution Width 14 % (10.5-15); White Blood Count 6.9 10^3/ul (3.5-10.8)
[2018-01-02 06:10] LABS: INR 0.98 (0.77-1.02)
[2018-01-02 06:25] LABS: EGFR Non-African American 73.6 (>60)
[2018-01-02] MEDS ORDERED: Atorvastatin* 10 MG TAB PO SCH (09:00)
[2018-01-02] MEDS ORDERED: Aspirin 81 mg CHEW TAB* 81 MG TAB.CHEW PO SCH (09:00)
[2018-01-02] MEDS ORDERED: Perflutren Lipid Microsphere* 3 ML VIAL ONE (09:23)
--- NOTE | 2018-01-02 09:32 | PN ---
Subjective Date of Service: 01/02/18 Interval History: Mr. Tim is doing well this afternoon. He is confused with a poor memory but is very pleasant and interactive. He denies any complaint. Objective Active Medications: Acetaminophen (Tylenol Tab*) 650 mg PO Q4H PRN Aspirin (Aspirin 81 Mg Chew Tab*) 81 mg PO QAM [place] Atorvastatin Calcium (Lipitor*) 5 mg PO DAILY [place] Finasteride (Proscar Tab*) 5 mg PO BEDTIME [facility] Sodium Chloride (Ns 0.9% 1000 Ml*) 1,000 mls @ 100 mls/hr IV PER RATE COURTNEY Tamsulosin HCl (Flomax Cap*) 0.4 mg PO BEDTIME COURTNEY Vital Signs: Temp Pulse Resp BP Pulse Ox 97.6 F 53 16 129/63 96 01/02/18 03:32 01/02/18 03:32 01/02/18 03:32 01/02/18 03:32 01/02/18 03:32 Oxygen Devices in Use Now: None Appearance: Male lying in bed in NAD Eyes: No Scleral Icterus Ears/Nose/Mouth/Throat: Mucous Membranes Moist Neck: Trachea Midline Respiratory: Symmetrical Chest Expansion and Respiratory Effort Cardiovascular: NL Sounds; No Murmurs; No JVD, No Edema Abdominal: NL Sounds; No Tenderness; No Distention Extremities: No Edema Skin: No Rash or Ulcers Neurological: NL Muscle Strength and Tone, - - Alert, oriented to self, pleasant , follows all commands Nutrition: Taking PO's Result Diagrams: 01/02/18 05:57 01/02/18 05:57 Additional Lab and Data: . Assess/Plan/Problems-Billing Assessment: Mr. Tim is an 87 yo male with a PMH of CAD with DE, htn, hld, and dementia who was admitted on 01/01/18 with syncope with concern for symptomatic bradycardia. - Patient Problems (1) Syncope Comment: - Patient with HR 40-50 though he is asymptomatic. - Dr. Mckenzie recommending placement of event monitor to verify that bradycardia is actually symptomatic before consideration of pacemaker. (2) BPH (benign prostatic hyperplasia) Status: Chronic Code(s): N40.0 - BENIGN PROSTATIC HYPERPLASIA WITHOUT LOWER URINRY TRACT SYMP SNOMED Code(s): 977254464 Comment: - Continue Tamsulosin and finasteride (3) CAD (coronary artery disease) Status: Chronic Code(s): I25.10 - ATHSCL HEART DISEASE OF [place] CORONARY ARTERY W/O ANG PCTRS SNOMED Code(s): 61407628 Comment: - Denies chest pain at this time - Continue statin (4) HLD (hyperlipidemia) Comment: - Continue atorvastatin (5) HTN (hypertension) Comment: - Normotensive (6) Full code status Comment: (7) DVT prophylaxis Comment: - SCDs. Status and Disposition: OBV. Patient in assisted living at [place].
--- NOTE | 2018-01-02 11:51 | ECHO ---
Patient: MITZI COVARRUBIAS [facility] Rec#: [id number] : 1930 Date: 01/02/2018 Age: 87y Height: 182.88 cm / 72.0 in Weight: 81.65 kg / 180.0 lbs Sex: M BSA: 2.04 Room#: [facility] Admit Date#: 01/01/2018 Type: Inpatient Referring: Fili Lu NP Reading: Kishan Mckenzie MD Meter Tester Polyphase: Olimpia Mendosa RDCS CC: Gayle Hughes MD Transthoracic Echocardiogram Indication: Syncope BP: 129/63 HR: 57 Rhythm: Bradycardia Findings History: CAD with SD in the past,COPD,dementia,HLD,HTN,[place] AND [place]BES. Technical Comments: The study is technically limited due to the patient's history of COPD. Completed at 1058. Definity used to enhance images. Left Ventricle: The left ventricular chamber size is normal. Posterior wall hypertrophy is observed. Left ventricular systolic function is at the lower limits of normal. The estimated ejection fraction is 50-55%. Abnormal left ventricular diastolic function is observed. Left Atrium: The left atrial chamber size is normal. Right Ventricle: The right ventricular cavity size is normal. The right ventricular global systolic function is normal. Right Atrium: The right atrial cavity size is normal. Aortic Valve: The aortic valve is trileaflet. There is no evidence of aortic valve thickening. There is no evidence of aortic regurgitation. There is no evidence of aortic stenosis. Mitral Valve: The mitral valve leaflets are mildly thickened. There is a trace of mitral regurgitation. There is no evidence of mitral stenosis. Tricuspid Valve: The tricuspid valve leaflets are normal. There is a physiologic tricuspid regurgitation. Unable to estimate the right ventricular systolic pressure. There is no tricuspid stenosis. Pulmonic Valve: The pulmonic valve structure is not well visualized. Pericardium: A pericardial fat pad is visualized. Aorta: There is no dilatation of the ascending aorta. There is no dilatation of the aortic arch. There is mild dilatation of the aortic root. Pulmonary Artery: The main pulmonary artery is not well visualized. Venous: The venous system is not well visualized. Contrast: Definity was used to optimize study. A total of 4 ml used. Intravenous contrast was used to enhance endocardial border definition. Conclusions Left ventricular systolic function is at the lower limits of normal. The estimated ejection fraction is 50-55%. Abnormal left ventricular diastolic function is observed. The right ventricular global systolic function is normal. There is no evidence of aortic stenosis. There is a trace of mitral regurgitation. There is a physiologic tricuspid regurgitation. Unable to estimate the right ventricular systolic pressure. Measurements Name Value Normal Range RVIDd (AP) 2D 2.9 cm (0.9 - 2.6) RVDdMajor (2D) 3.7 cm (2.2 - 4.4) RAd ISD 4CH 4.7 cm (3.4 - 4.9) RA (A4C)W 3.2 cm (2.9 - 4.6) IVSd (2D) 1 cm (0.6 - 1) LVPWd (2D) 1.5 cm (0.6 - 1) LVIDd (2D) 4 cm (3.6 - 5.4) LVIDs (2D) 2 cm - LV FS (2D) 49 % (25 - 45) Aortic Annulus 2 cm (1.4 - 2.6) Ao root diameter (2D) 3.6 cm (2.1 - 3.5) Ascending Ao 3.1 cm (2.1 - 3.4) LA dimension (AP) 2D 3 cm (2.3 - 3.8) LAd ISD 4CH 4.7 cm (2.9 - 5.3) LA ISD 4CH W 3.4 cm (2.5 - 4.5) Name Value Normal Range LA ESV SP 4CH (A/L) 30.93 ml - LA ESV SP 4CH (MOD) 28.74 ml - Name Value Normal Range MV E-wave Vmax 0.9 m/sec - MV deceleration time 249 msec - MV A-wave Vmax 1.1 m/sec - MV E:A ratio 0.9 ratio - LV septal e' Vmax 0.09 m/sec - LV lateral e' Vmax 0.07 m/sec - LV E:e' septal ratio 7.78 ratio - LV E:e' lateral ratio 10 ratio - Name Value Normal Range AV Vmax 1 m/sec - AV VTI 27.1 cm - AV peak gradient 3.97 mmHg - AV mean gradient 1.95 mmHg - LVOT Vmax 0.8 m/sec - LVOT VTI 15.8 cm - LVOT peak gradient 2.26 mmHg - LVOT mean gradient 1 mmHg - Name Value Normal Range PV Vmax 0.7 m/sec - PV peak gradient 2.13 mmHg -
[2018-01-02] MEDS ORDERED: Lidocaine 1% INJ* 10 MG/ML 30 ML SDV ONE (15:09)
--- NOTE | 2018-01-02 15:26 | CONS ---
CC: Dr. Hughes; Dr. Granger CARDIOLOGY CONSULTATION: DATE OF CONSULT: 01/02/18 INDICATION FOR CONSULT: Syncope. HISTORY OF PRESENT ILLNESS: The patient is an 87-year-old gentleman with a history of coronary arter y disease, history of hypertension, who was admitted to the hospital because of an unresponsive episo de at [place]. The patient does have a history of these episodes of unresponsiveness. The patient' s daughter states that when the patient gets dehydrated, he has these episodes of becoming unresponsi ve. It should be noted that the patient has significant dementia and is unable to care for himself. The patient is unable to give me any insight into the event that occurred at [place]. The patient has had these episodes in the past. He has had a Holter monitor in November of 2017, which showed essentially sinus bradycardia, no significant pauses, no significant other arrhythmias. The patient had an echocardiogram today, which showed normal low ejection fraction with no significan t valvular abnormalities. His laboratory studies were unremarkable. PAST MEDICAL HISTORY: Significant for coronary artery disease. He had a cardiac catheterization in February of 2016, at that time he had a 95% stenosis of his right coronary artery. He had a drug-eluting stent placed to his right coronary artery. History of dementia, hypertension, hyperlipidemia. PAST SURGICAL HISTORY: Hernia repair. OUTPATIENT MEDICATIONS: 1. Flomax 0.4 mg daily. 2. Microplex capsule twice a day. 3. Proscar 5 mg a day. 4. Pravachol 20 mg a day. 5. Aspirin 81 mg a day. 6. Multiple supplements. ALLERGIES: No known drug allergies. FAMILY HISTORY: Could not be obtained. SOCIAL HISTORY: He is a previous smoker. No alcohol. He is a DNR. I did speak directly to his Dalia villareal, who is his healthcare proxy. PHYSICAL EXAM: Height is 6 feet, weight is 189 pounds. Temperature 98.2, heart rate is 50, blood pr essure 111/40, respiratory rate is 18, oxygen saturation 96% on room air. Sclerae anicteric. Oropha rynx is pink without erythema. Carotids are 2+ without bruits. JVD is normal. Thyroid is normal. Cardiac Exam: S1, S2 without any murmurs, rubs, or gallops. Lungs are clear to auscultation. There is no dullness to percussion. Abdomen is soft, nontender, nondistended with normoactive bowel sound s. Extremities show no edema. He has 2+ pulses throughout. The patient is awake and alert, unable t o give me time and day. He moves all 4 extremities, but could not participate in neuro exam. DIAGNOSTIC STUDIES/LAB DATA: Hematology within normal limits. Chemistries within normal limits. Tr oponins are negative x3. His EKG shows sinus bradycardia. IMPRESSION AND PLAN: This is an 87-year-old gentleman with dementia, who is admitted to the hospital with an unresponsive episode. At this point, I am not exactly sure what the cause of his episode was. The patient does have a hist ory of sinus bradycardia and has been evaluated in the past. Again, I cannot say that his episode of unresponsiveness was due to bradycardia, but there is a suspicion of that. Because the patient is unable to really participate in his care, it is my recommendation that the pat ient undergo event monitor implantation for long-term monitoring of his cardiac status. If he has fu rther episodes similar to his admission of unresponsive episode, then we would have a tracing of his heart rhythm during event. This was discussed in detail with his daughter, Dalia, and with the nurse practitioner following his care, Ca Cummins NP. [id number]/[facility] #: [id number]
[2018-01-02 16:07] VITALS: BP 133/55
--- NOTE | 2018-01-02 16:25 | CARD ---
CC: Dr. Gayle Hughes EVENT MONITOR IMPLANTATION: DATE OF PROCEDURE: 01/02/18 PROCEDURE: Event monitor implantation. INDICATION FOR PROCEDURE: Syncope, bradycardia. The patient is an 87-year-old gentleman with a history of severe dementia, who was admitted [facility] with an unresponsive episode. The patient has had a number of these unresponsive episodes. A Holter monitor done at my office last month demonstrated sinus bradycardia, but no significant pause s or high-degree AV block. The patient had another episode of unresponsiveness. Event monitor impla ntation was recommended for long-term cardiac monitoring. DESCRIPTION OF PROCEDURE: The patient was brought to the procedure room. Informed consent had been obtained prior to the procedure with the patient's daughter, Dalia. The patient's anterior chest was prepped and draped in the usual fashion. 1% lidocaine was used for local anesthesia. The event ca tor was injected subcutaneously. The patient tolerated the procedure well with no complications. The event monitor is a [employer] LINQ, serial number [id number] that had an R-wave sensitivity of 0.44. The patient tolerated the procedure well. [id number]/[facility] #: [id number]
--- NOTE | 2018-01-02 22:39 | DS ---
CC: Dr. Hughes * DISCHARGE SUMMARY: DATE OF ADMISSION: 01/01/18 DATE OF DISCHARGE: 01/02/18 ATTENDING PHYSICIAN: Dr. Jarrett * (dictation provided by Ca Cummins NP) PRIMARY DIAGNOSES: 1. Syncope. 2. Bradycardia. SECONDARY DIAGNOSES: 1. History of coronary artery disease with myocardial infarction. 2. Dementia. 3. Hyperlipidemia. 4. Hypertension. PAST SURGICAL HISTORY: 1. History of cardiac catheterization. 2. Hernia repair. MEDICATIONS AT THE TIME OF DISCHARGE: They are unchanged from home: 1. [place] capsule one p.o. daily. 2. Flomax 0.4 mg p.o. at bedtime. 3. Deep Blue cap one capsule p.o. at bedtime. 4. Microplex one capsule p.o. b.i.d. 5. XEO Gigi one capsule p.o. b.i.d. 6. DDR Prime one capsule p.o. at bedtime. 7. Proscar 5 mg p.o. at bedtime. 8. Taurine 1000 mg p.o. daily. 9. Gsyk2Jke one capsule p.o. q.a.m. 10. Pravachol 20 mg p.o. daily. 11. Aspirin 81 mg daily. 12. Alpha CRS one capsule p.o. b.i.d. HOSPITAL COURSE: Mr. Tim is an 87-year-old male with past medical history of coronary artery disease, myocardial infarction, dementia who presented to the hospital on 01/01/18 after a syncopal episode at home. Please see the dictated H and P from Fili Lu for complete details. In brief, the patient was reportedly walking down the queen when he had a syncopal episode, he had had three to four recent syncopal episodes as described by his daughter. She states that sometimes these episodes are happening while he is seated, eating dinner and he has also had some while walking. In the emergency room, it was noted that his heart rate was in the 40s and there was concern that perhaps his syncopal episode was related to his bradycardia. It was also noted that the patient was orthostatic via blood pressure criteria. Mr. Tim was admitted to the hospital. He was given intravenous fluids for his fall with the syncope. He did have multiple imaging studies including a chest x -ray which showed "stigmata of probable chronic obstructive pulmonary disease, mild bibasilar airspace consolidation unchanged compared with 11/02/17 most suspicious for atelectasis." He had a CT of the brain which showed "no CT evidence for traumatic brain injury or acute intracranial process, mild involutional change and stigmata of small vessel ischemic disease, left middle cranial fossa arachnoid cyst." He had cervical spine CT which showed "no CT evidence for traumatic cervical spine injury." He had a hip and pelvis x-ray which showed "no radiographic evidence for right hip fracture." Pelvis CT was read as follows: "No CT evidence for right hip or pelvic fracture." Mr. Tim was monitored on telemetry and continued to have bradycardia. He had a transthoracic echocardiogram which showed the following: "Left ventricular systolic function is at the lowest limits of normal, the estimated ejection fraction is 50% to 55%. There is abnormal left ventricular diastolic function observed. The right ventricular global systolic function is normal. There is no evidence of aortic stenosis." Mr. Tim was seen in consultation by Dr. Mckenzie from Cardiology who recommended that the patient have an event monitor placed that has been accomplished today. Dr. Mckenzie is not convinced that the patient's bradycardia as evidenced in the hospital explains the patient's episodes of syncope. However, he could possibly have another type of arrhythmia based on the description of his syncopal episodes leading to this problem. The patient was orthostatic during the hospitalization by vital signs criteria, but was completely asymptomatic. It is not clear to me that this explains his previous episodes given that at least two of them happened while he was seated. I spoke with Mr. Tim's daughter at length on the phone and suggested that it is likely either an arrhythmia or even possibly a seizure disorder that could be contributing to his symptoms. The patient's daughter is aware of the fact that there are more subtle seizure symptoms that could be consistent with the patient 's presentation. She would like to proceed with an event monitor before any further neurological workup is undertaken for possible seizure disorder. She is also aware that seizure meds are often difficult for elderly people to tolerate. Mr. Tim was medically stable for discharge back to [place]. He has the event monitor placed. He will be following up with Dr. Mckenzie for review of this as well as Dr. Hughes regarding this acute hospitalization in the next week. DISPOSITION: To home. DIET: Regular. ACTIVITY: As tolerated. FOLLOWUP PLANS: 1. Please follow up with Dr. Mckenzie the next month regarding the event monitor. 2. Please follow up with Dr. Hughes next week regarding this acute hospitalization. TIME SPENT: Approximately 60 minutes was spent in the discharge of this patient , more than half the time was spent with the patient at the bedside reviewing the events leading up to this hospitalization, performing the physical examination, and reviewing my plan of care. CA CUMMINS NP [id number]/[facility] #: [id number] PAMELA
== END 2018-01-02 18:24 | disposition home or self-care (01) ==
LOC: ED 10:42 → MEDTELE 16:06
PROVIDERS: ADMIT Internal Medicine; ATTEND Student in an Organized Health Care Education/Training Program
DX: R55 Syncope and collapse (principal); R00.1 Bradycardia, unspecified; I25.10 Atherosclerotic heart disease of native coronary artery without angina pectoris; I25.2 Old myocardial infarction; M25.551 Pain in right hip; Z87.891 Personal history of nicotine dependence; Z95.5 Presence of coronary angioplasty implant and graft; N40.0 Benign prostatic hyperplasia without lower urinary tract symptoms; E78.5 Hyperlipidemia, unspecified; I10 Essential (primary) hypertension; F03.90 Unspecified dementia, unspecified severity, without behavioral disturbance, psychotic disturbance, mood disturbance, and anxiety; Z79.82 Long term (current) use of aspirin
CPT/HCPCS: 33282; 36415; 70450; 71045; 72125; 72192; 80048; 80053; 81003; 83605; 83735; 84443; 84484; 85025; 85610; 93005; 93306; 99285; A9270-GY; C1764; C8929; G0378; G8978-GP-CI; G8979-GP-CI; G8980-GP-CI

== ENCOUNTER 2018-01-03 02:15 | Emergency (ER) | payer OTHER ==
[2018-01-03] MEDS ORDERED: Acetaminophen TAB* 325 MG PO ONE (02:59)
[2018-01-03 03:20] LABS: ABS Basophils 0 10^3/ul (0-0.2); ABS Eosinophils 0.1 10^3/ul (0-0.6); ABS Monocytes 0.7 10^3/ul (0-0.8); ABS Neutrophils 6.6 10^3/ul (1.5-7.7); ABS Nucleated RBC 0 10^3/ul; Eosinophil % 1.3 % (0-6); Hematocrit 40 % (42-52); Hemoglobin 13.8 g/dl (14.0-18.0); Lymphocyte % 11.4 % (25-47); Mean Corpuscular HGB Conc 34 g/dl (31-36); Mean Corpuscular Hemoglobin 31 pg (27-31); Mean Corpuscular Volume 90 fL (80-94); Mean Platelet Volume 6.9 um3 (7.4-10.4); Nucleated Red Blood Cells % 0; Platelet Count 199 10^3/ul (150-450); Red Blood Count 4.45 10^6/ul (4.0-5.4); Red Cell Distribution Width 14 % (10.5-15); White Blood Count 8.5 10^3/ul (3.5-10.8)
[2018-01-03 05:17] LABS: Urine Appearance Clear; Urine Blood Negative (Negative); Urine Color Yellow; Urine Ketones Negative (Negative); Urine Protein Negative (Negative); Urine Specific Gravity 1.017 (1.010-1.030); Urine Urobilinogen Negative (Negative)
--- NOTE | 2018-01-03 05:34 | ED ---
Fermin Barcenas Rebecca, scribed for John Murillo on 01/03/18 at 0251 . Psychiatric Complaint - HPI Summary HPI Summary: Pt is an 87 y/o M BIBA from [place] due to aggressive behavior towards their staff. Per nurse's triage, the pt has been cooperative since arrival to the ED. PMHx chronic UTIs. Level 5 caveat due to dementia. No history was obtainable from the pt. 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: Positive For: Prior Psychiatric Issues - PTSD - Allergies/Home Medications Allergies/Adverse Reactions: Allergies Allergy/AdvReac Type Severity Reaction Status Date / Time No Known Allergies Allergy Verified 09/02/17 14:11 PMH/Surg Hx/FS Hx/Imm Hx Endocrine/Hematology History: Reports: Hx Anemia Cardiovascular History: Reports: Hx Coronary Artery Disease, Hx Hypertension, Hx Myocardial Infarction - 3 weeks ago, Hx Syncope, Other Cardiovascular Problems/Disorders - 01/01/18 syncope and bradycardia, HCL, HLD Respiratory History: Reports: Hx Asthma GI History: Reports: Other GI Disorders - Hx Hernia Repair History: Reports: Hx Benign Prostatic Hyperplasia - Flomax; if not BPH, then urgency and hesitation and some incontinence Musculoskeletal History: Reports: Hx Arthritis Sensory History: Reports: Hx Contacts or Glasses, Hx Deafness, Hx Hearing Problem Denies: Hx Hearing Aid Opthamlomology History: Reports: Hx Contacts or Glasses Neurological History: Reports: Hx Dementia, Other Neuro Impairments/Disorders - L arachnoid cyst per 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 - Surgical History Surgery Procedure, Year, and Place: Multiple Hernia Repairs. [address] Infectious Disease History: No Infectious Disease History: Denies: Traveled Outside the [place] in Last 30 Days - Family History Known Family History: Positive: Unknown - due to level 5 caveat - pt has dementia - Social History Alcohol Use: None Hx Substance Use: No Substance Use Type: Reports: None Hx Tobacco Use: Yes Smoking Status (MU): Former Smoker Review of Systems Positive: Other - Aggressive behavior STOCK ROOM MANAGER; cooperative since being in the ED All Other Systems Reviewed And Are Negative: No - Comments Additional Review of Systems Comments: Level 5 caveat due to dementia. Physical Exam - Summary Physical Exam Summary: Appearance: No pain distress Skin: warm, dry, reflects adequate perfusion Head/face: normal Eyes: EOMI, EDWARD ENT: normal Neck: supple, non-tender Respiratory: CTA, breath sounds present Cardiovascular: RRR, pulses symmetrical Abdomen: non-tender, soft Bowel: present Musculoskeletal: normal, strength/ROM intact Neuro: alert and confused Level 5 caveat due to dementia. Triage Information Reviewed: Yes Vital Signs On Initial Exam: Initial Vitals Temp Pulse Resp BP Pulse Ox 100.0 F 64 16 142/61 99 01/03/18 02:23 01/03/18 02:23 01/03/18 02:23 01/03/18 02:23 01/03/18 02:23 Vital Signs Reviewed: Yes Completion Of Physical Exam Limited Due To: Dementia Diagnostics - Vital Signs Vital Signs Temp Pulse Resp BP Pulse Ox 01/03/18 02:23 100.0 F 64 16 142/61 99 - Laboratory Result Diagrams: 01/03/18 03:05 01/03/18 03:05 Lab Statement: Any lab studies that have been ordered have been reviewed, and results considered in the medical decision making process. - Radiology CXR Xray Interpretation: No Acute Changes Radiology Interpretation Completed By: ED Physician Course/Dx - Course Assessment/Plan: Pt is an 87 y/o M BIBA from [place] due to aggressive behavior towards their staff. Per nurse's triage, the pt has been cooperative since arrival to the ED. PMHx chronic UTIs. Level 5 caveat due to dementia. No history was obtainable from the pt. In the ED course, given Acetaminophen. Blood work was done. CXR reveals no acute findings. Pt will be D/C to home with Dx of dementia and aggressive behavior with a follow up with his PCP. - Differential Dx/Clinical Impression Provider Diagnosis: Aggressive behavior, Dementia Discharge - Sign-Out/Discharge Documenting (check all that apply): Discharge/Admit/Transfer - Discharge - Discharge Plan Condition: Stable Disposition: HOME Patient Education Materials: Dementia (ED) Referrals: Gayle Hughes MD [Primary Care Provider] - 3 Days Additional Instructions: RETURN TO ED FOR ANY RETURNING OR WORSENING SYMPTOMS. The documentation as recorded by the Fermin hunt Rebecca accurately reflects the service I personally performed and the decisions made by , John Murillo.
[2018-01-03 05:54] VITALS: BP 135/60
--- NOTE | 2018-01-03 08:12 | RAD ---
INDICATION: Fever COMPARISON: Most recent comparison chest x-rays dated January 01, 2018 TECHNIQUE: Single AP portable view of the chest was obtained. FINDINGS: Image quality is compromised due to the relative inferiority of a portable chest x-ray. There is been interval placement of an implantable cardiac monitoring device overlying the left hemithorax. The heart and mediastinum exhibit normal size and contour. The lungs are grossly clear. There is no evidence of a large pleural effusion. Visualized bones are normal for the patient's age. IMPRESSION: No radiographic evidence for acute cardiopulmonary abnormality on this portable chest x-ray.
== END 2018-01-03 05:52 | disposition home or self-care (01) ==
LOC: ED 02:15
DX: F03.91 Unspecified dementia, unspecified severity, with behavioral disturbance (principal); Z87.440 Personal history of urinary (tract) infections; I25.10 Atherosclerotic heart disease of native coronary artery without angina pectoris; I10 Essential (primary) hypertension; I21.9 Acute myocardial infarction, unspecified; Z95.5 Presence of coronary angioplasty implant and graft; J45.909 Unspecified asthma, uncomplicated; N40.0 Benign prostatic hyperplasia without lower urinary tract symptoms; G93.0 Cerebral cysts; Z87.891 Personal history of nicotine dependence
CPT/HCPCS: 36415; 71045; 80053; 80307; 80320; 80329; 81003; 84443; 84484; 85025; 99285; G0480

== ENCOUNTER 2018-01-19 21:22 | Emergency (ER) | payer OTHER ==
[2018-01-19] MEDS ORDERED: Aspirin 81 mg CHEW TAB* 81 MG TAB.CHEW PO ONE (21:50)
[2018-01-19 22:32] LABS: ABS Basophils 0 10^3/ul (0-0.2); ABS Eosinophils 0.1 10^3/ul (0-0.6); ABS Lymphocytes 1.8 10^3/ul (1.0-4.8); ABS Monocytes 0.7 10^3/ul (0-0.8); ABS Neutrophils 4.8 10^3/ul (1.5-7.7); ABS Nucleated RBC 0 10^3/ul; Eosinophil % 1.9 % (0-6); Hematocrit 40 % (42-52); Hemoglobin 14.1 g/dl (14.0-18.0); Lymphocyte % 24.2 % (25-47); Mean Corpuscular HGB Conc 35 g/dl (31-36); Mean Corpuscular Hemoglobin 32 pg (27-31); Mean Corpuscular Volume 90 fL (80-94); Mean Platelet Volume 7.1 um3 (7.4-10.4); Nucleated Red Blood Cells % 0; Platelet Count 228 10^3/ul (150-450); Red Blood Count 4.44 10^6/ul (4.0-5.4); Red Cell Distribution Width 14 % (10.5-15); White Blood Count 7.6 10^3/ul (3.5-10.8)
[2018-01-19 22:50] LABS: EGFR Non-African American 68.6 (>60)
[2018-01-19 23:58] VITALS: BP 101/63
--- NOTE | 2018-01-20 04:17 | ED ---
Noah Barcenas Angela, scribed for Ant Raymond MD on 01/19/18 at 2208 . HPI Chest Pain - HPI Summary HPI Summary: This pt is an 87 y/o male presenting to [facility] via EMS from [place] c/o left sided chest pain today. Per EMS pt received 1 nitroglycerin and aspirin [employer]. Pt notes he had sudden onset of chest pain today. He describes his chest pain as sharp and intermittent. He reports he had a needle inserted into his left chest recently for a procedure, he is unable to give any more details. HPI IS LIMITED DUE TO LEVEL 5 CAVEAT - History of Current Complaint Chief Complaint: EDChestPainROMI Time Seen by Provider: 01/19/18 21:41 Hx Obtained From: Patient Hx From Patient Unobtainable Due To: Other - Level 5 caveat - pt is hard of hearing Onset/Duration: Started Hours Ago, Still Present Timing: Lasting Hours Current Severity: Moderate Pain Intensity: 4 Pain Scale Used: 0-10 Numeric Chest Pain Location: Left Anterior Chest Pain Radiates: No Character: Sharp/Stabbing - sharp Aggravating Factor(s): Other: - unknown Alleviating Factor(s): Other: - unknown Associated Signs and Symptoms: Positive: Chest Pain - Allergy/Home Medications Allergies/Adverse Reactions: Allergies Allergy/AdvReac Type Severity Reaction Status Date / Time No Known Allergies Allergy Verified 09/02/17 14:11 Home Medications: Home Medications Alpha Crs 1 cap PO BID 01/19/18 [History Confirmed 01/19/18] Aspirin EC TAB* [Ecotrin EC Low Dose 81 MG*] 81 mg PO DAILY 01/19/18 [History Confirmed 01/19/18] Finasteride [Proscar] 5 mg PO BEDTIME 01/19/18 [History Confirmed 01/19/18] L.acidoph,Paracasei, B.lactis [Probiotic] 1 each PO QAM 01/19/18 [History Confirmed 01/19/18] MSM/Aloe Vera/Emu Oil/Xgbliy29 [Deep Blue Relief] 1 cap PO BEDTIME 01/19/18 [ History Confirmed 01/19/18] Microplex Vm2 1 tab PO BID 01/19/18 [History Confirmed 01/19/18] Ariel 2 Max 1 cap PO QAM 01/19/18 [History Confirmed 01/19/18] Pravastatin (NF) [Pravachol (NF)] 20 mg PO DAILY 01/19/18 [History Confirmed ] Stevens Lecithin 1,200 mg PO BEDTIME 01/19/18 [History Confirmed 01/19/18] Tamsulosin CAP* [Flomax CAP*] 0.4 mg PO DAILY 01/19/18 [History Confirmed ] Taurine [Gigi Taurine] 1,000 mg PO QAM 01/19/18 [History Confirmed 01/19/18] Xeomega 1 cap PO BID 01/19/18 [History Confirmed 01/19/18] PMH/Surg Hx/FS Hx/Imm Hx Endocrine/Hematology History: Reports: Hx Anemia Cardiovascular History: Reports: Hx Coronary Artery Disease, Hx Hypertension, Hx Myocardial Infarction - 3 weeks ago, Hx Syncope, Other Cardiovascular Problems/Disorders - 01/01/18 syncope and bradycardia, HCL, HLD Respiratory History: Reports: Hx Asthma GI History: Reports: Other GI Disorders - Hx Hernia Repair History: Reports: Hx Benign Prostatic Hyperplasia - Flomax; if not BPH, then urgency and hesitation and some incontinence Musculoskeletal History: Reports: Hx Arthritis Sensory History: Reports: Hx Contacts or Glasses, Hx Deafness, Hx Hearing Problem Denies: Hx Hearing Aid Opthamlomology History: Reports: Hx Contacts or Glasses Neurological History: Reports: Hx Dementia, Other Neuro Impairments/Disorders - L arachnoid cyst per 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 Denies: Hx Eating Disorder - Surgical History Surgery Procedure, Year, and Place: Multiple Hernia Repairs. [address] Infectious Disease History: No Infectious Disease History: Denies: Traveled Outside the [place] in Last 30 Days - Family History Known Family History: Positive: Unknown - due to level 5 caveat - pt has dementia, Other - due to level 5 caveat - pt has dementia - Social History Alcohol Use: None Hx Substance Use: No Substance Use Type: Reports: None Hx Tobacco Use: Yes Smoking Status (MU): Former Smoker Review of Systems - ROS Summary Review of Systems Summary: ROS IS LIMITED DUE TO LEVEL 5 CAVEAT - pt is hard of hearing Negative: Fever Positive: Chest Pain All Other Systems Reviewed And Are Negative: No Physical Exam - Summary Physical Exam Summary: Appearance: Well appearing, no pain distress. Pt is disheveled. Skin: warm, dry, reflects adequate perfusion Head/face: normal Eyes: EOMI, EDWARD ENT: Extremely hard of hearing Neck: supple, non-tender Respiratory: CTA, breath sounds present Cardiovascular: Bradycardic with occasional irregularity, pulses symmetrical Abdomen: non-tender, soft Bowel: present Musculoskeletal: normal, strength/ROM intact. No LE edema. Neuro: normal, sensory motor intact, Alert with some dementia. Triage Information Reviewed: Yes Vital Signs On Initial Exam: Initial Vitals Temp Pulse Resp BP Pulse Ox 98.6 F 50 18 100/50 95 01/19/18 21:35 01/19/18 21:35 01/19/18 21:35 01/19/18 21:35 01/19/18 21:35 Vital Signs Reviewed: Yes Completion Of Physical Exam Limited Due To: Level 5 Diagnostics - Vital Signs Vital Signs Temp Pulse Resp BP Pulse Ox 01/19/18 21:52 94 01/19/18 21:35 98.6 F 50 18 100/50 95 - Laboratory Lab Results: Lab Results 01/19/18 01/19/18 01/19/18 Range/Units 22:17 22:17 22:17 WBC 7.6 (3.5-10.8) 10^3/ul RBC 4.44 (4.0-5.4) 10^6/ul Hgb 14.1 (14.0-18.0) g/dl Hct 40 L (42-52) % MCV 90 (80-94) fL MCH 32 H (27-31) pg MCHC 35 (31-36) g/dl RDW 14 (10.5-15) % Plt Count 228 (150-450) 10^3/ul MPV 7.1 L (7.4-10.4) um3 Neut % (Auto) 63.6 (38-83) % Lymph % (Auto) 24.2 L (25-47) % [place] % (Auto) 9.6 H (0-7) % Eos % (Auto) 1.9 (0-6) % Baso % (Auto) 0.7 (0-2) % Absolute Neuts (auto) 4.8 (1.5-7.7) 10^3/ul Absolute Lymphs (auto) 1.8 (1.0-4.8) 10^3/ul Absolute Monos (auto) 0.7 (0-0.8) 10^3/ul Absolute Eos (auto) 0.1 (0-0.6) 10^3/ul Absolute Basos (auto) 0 (0-0.2) 10^3/ul Absolute Nucleated RBC 0 10^3/ul Nucleated RBC % 0 Sodium 136 L (139-145) mmol/L Potassium 4.2 (3.5-5.0) mmol/L Chloride 107 (101-111) mmol/L Carbon Dioxide 23 (22-32) mmol/L Anion Gap 6 (2-11) mmol/L BUN 26 H (6-24) mg/dL Creatinine 1.03 (0.67-1.17) mg/dL Est GFR ( Amer) 88.3 (>60) Est GFR (Non-Af Amer) 68.6 (>60) BUN/Creatinine Ratio 25.2 H (8-20) Glucose 97 (70-100) mg/dL Lactic Acid 0.9 (0.5-2.0) mmol/L Calcium 9.5 (8.6-10.3) mg/dL Total Bilirubin 0.40 (0.2-1.0) mg/dL AST 15 (13-39) U/L ALT 9 (7-52) U/L Alkaline Phosphatase 73 (34-104) U/L Troponin I 0.00 (<0.04) ng/mL B-Natriuretic Peptide ( - 100) pg/mL Total Protein 7.0 (6.4-8.9) g/dL Albumin 4.0 (3.2-5.2) g/dL Globulin 3.0 (2-4) g/dL Albumin/Globulin Ratio 1.3 (1-3) 05/17/18 Range/Units 22:17 WBC (3.5-10.8) 10^3/ul RBC (4.0-5.4) 10^6/ul Hgb (14.0-18.0) g/dl Hct (42-52) % MCV (80-94) fL MCH (27-31) pg MCHC (31-36) g/dl RDW (10.5-15) % Plt Count (150-450) 10^3/ul MPV (7.4-10.4) um3 Neut % (Auto) (38-83) % Lymph % (Auto) (25-47) % [place] % (Auto) (0-7) % Eos % (Auto) (0-6) % Baso % (Auto) (0-2) % Absolute Neuts (auto) (1.5-7.7) 10^3/ul Absolute Lymphs (auto) (1.0-4.8) 10^3/ul Absolute Monos (auto) (0-0.8) 10^3/ul Absolute Eos (auto) (0-0.6) 10^3/ul Absolute Basos (auto) (0-0.2) 10^3/ul Absolute Nucleated RBC 10^3/ul Nucleated RBC % Sodium (139-145) mmol/L Potassium (3.5-5.0) mmol/L Chloride (101-111) mmol/L Carbon Dioxide (22-32) mmol/L Anion Gap (2-11) mmol/L BUN (6-24) mg/dL Creatinine (0.67-1.17) mg/dL Est GFR ( Amer) (>60) Est GFR (Non-Af Amer) (>60) BUN/Creatinine Ratio (8-20) Glucose (70-100) mg/dL Lactic Acid (0.5-2.0) mmol/L Calcium (8.6-10.3) mg/dL Total Bilirubin (0.2-1.0) mg/dL AST (13-39) U/L ALT (7-52) U/L Alkaline Phosphatase (34-104) U/L Troponin I (<0.04) ng/mL B-Natriuretic Peptide 23 ( - 100) pg/mL Total Protein (6.4-8.9) g/dL Albumin (3.2-5.2) g/dL Globulin (2-4) g/dL Albumin/Globulin Ratio (1-3) Result Diagrams: 01/19/18 22:17 01/19/18 22:17 Lab Statement: Any lab studies that have been ordered have been reviewed, and results considered in the medical decision making process. - Radiology Chest XR Xray Interpretation: No Acute Changes Radiology Interpretation Completed By: ED Physician - negative chest XR. - EKG 21:09 Cardiac Rate: Bradycardia - at 44 bpm EKG Rhythm: Sinus Bradycardia ST Segment: Normal EKG Interpretation: Normal axis Chest Pain Course/Dx - Course Course Of Treatment: Patient with advanced dementia with sudden onset of sharp stabbing pain that lasted seconds and went away abruptly. He has no real pain here. He his troponin is 0 and his EKG is nondiagnostic. He was feeling well and was discharged back to the nursing facility. - Chest Pain Differential Diagnosis/HQI/PQRI: Acute [place], ACS, Angina, GI Disease, Lower Respiratory Infection, Other: - Atypical chest pain - Diagnoses Provider Diagnoses: Bradycardia, Atypical chest pain, Advanced dementia Discharge - Sign-Out/Discharge Documenting (check all that apply): Discharge/Admit/Transfer - Discharge - Discharge Plan Condition: Good Disposition: [facility] FACILITY Patient Education Materials: Chest Pain (ED) Referrals: Gayle Hughes MD [Primary Care Provider] - Additional Instructions: Return to [place]. Follow-up with the family doctor in the morning for review of blood pressure and heart rate. He was bradycardic here with heart rates in the 40s and 50s. Return if worse, new symptoms or other concerns. Chest pain was sharp, of very short duration and subsequently resolved. He has no pain or symptoms here. - Billing Disposition and Condition Condition: GOOD Disposition: SNF The documentation as recorded by the Noah hunt Angela accurately reflects the service I personally performed and the decisions made by me, Ant Raymond MD.
--- NOTE | 2018-01-20 07:19 | RAD ---
INDICATION: Chest pain. COMPARISON: Comparison is made with a prior chest x-ray study from January 03, 2018. TECHNIQUE: A portable view of the chest was obtained. FINDINGS: Cardiac and mediastinal contours appear to be within normal limits. The lungs are slightly underinflated and clear. No pleural effusion or pneumothorax is seen. IMPRESSION: NO EVIDENCE FOR ACUTE DISEASE.
== END 2018-01-19 23:56 ==
LOC: ED 21:22
DX: R00.1 Bradycardia, unspecified (principal); I25.10 Atherosclerotic heart disease of native coronary artery without angina pectoris; I25.2 Old myocardial infarction; R07.89 Other chest pain; F03.90 Unspecified dementia, unspecified severity, without behavioral disturbance, psychotic disturbance, mood disturbance, and anxiety; Z87.891 Personal history of nicotine dependence; Z79.82 Long term (current) use of aspirin
CPT/HCPCS: 36415; 71045; 80053; 83605; 83880; 84484; 85025; 93005; 99284; A9270-GY

== ENCOUNTER 2018-01-23 12:34 | Inpatient (IN) | payer OTHER ==
[2018-01-23 13:44] LABS: ABS Basophils 0 10^3/ul (0-0.2); ABS Eosinophils 0.1 10^3/ul (0-0.6); ABS Lymphocytes 0.9 10^3/ul (1.0-4.8); ABS Monocytes 0.6 10^3/ul (0-0.8); ABS Neutrophils 4.7 10^3/ul (1.5-7.7); ABS Nucleated RBC 0 10^3/ul; Eosinophil % 1.3 % (0-6); Hematocrit 40 % (42-52); Hemoglobin 13.9 g/dl (14.0-18.0); Mean Corpuscular HGB Conc 35 g/dl (31-36); Mean Corpuscular Hemoglobin 31 pg (27-31); Mean Corpuscular Volume 90 fL (80-94); Mean Platelet Volume 7.3 um3 (7.4-10.4); Nucleated Red Blood Cells % 0; Platelet Count 210 10^3/ul (150-450); Red Blood Count 4.42 10^6/ul (4.0-5.4); Red Cell Distribution Width 14 % (10.5-15); White Blood Count 6.3 10^3/ul (3.5-10.8)
[2018-01-23 13:58] LABS: EGFR Non-African American 65.7 (>60)
--- NOTE | 2018-01-23 14:08 | RAD ---
HISTORY: Altered mental status COMPARISONS: January 19, 2018 VIEWS: 1: frontal portable view of the chest at 1:40 PM FINDINGS: LINES AND TUBES: None. CARDIOMEDIASTINAL SILHOUETTE: The cardiomediastinal silhouette is normal for portable technique. PLEURA: The costophrenic angles are sharp. No pleural abnormalities are noted. LUNG PARENCHYMA: The lungs are clear. ABDOMEN: The upper abdomen is clear. There is no subphrenic gas. BONES AND SOFT TISSUES: Degenerative changes are noted along the spine. IMPRESSION: NO ACTIVE CARDIOPULMONARY DISEASE.
--- NOTE | 2018-01-23 15:31 | RAD ---
HISTORY: Altered mental status COMPARISONS: January 01, 2018 TECHNIQUE: Multiple contiguous axial CT scans were obtained of the head without intravenous contrast. FINDINGS: HEMORRHAGE/INFARCT: There is no hemorrhage or acute infarct. MASSES/SHIFT: There is no mass or shift. EXTRA-AXIAL SPACES: There is a stable arachnoid cyst of the middle cranial fossa on the left. SULCI AND VENTRICLES: The sulci and ventricles are normal in size and position for the patient's stated age. CEREBRUM: There are no focal parenchymal abnormalities. BRAINSTEM: There are no focal parenchymal abnormalities. CEREBELLUM: There are no focal parenchymal abnormalities. VESSELS: The vessels are grossly normal. PARANASAL SINUSES: The paranasal sinuses are clear. ORBITS: The orbits are unremarkable. BONES AND SOFT TISSUE: No bone or soft tissue abnormalities are noted. OTHER: None IMPRESSION: NO ACUTE INTRACRANIAL PATHOLOGY.
[2018-01-23 16:31] LABS: Urine Appearance Cloudy; Urine Blood Negative (Negative); Urine Color Yellow; Urine Ketones Negative (Negative); Urine Protein Negative (Negative); Urine Specific Gravity 1.019 (1.010-1.030); Urine Urobilinogen Negative (Negative)
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
[2018-01-23] MEDS: Finasteride TAB* 5 MG PO SCH (21:16)
[2018-01-23] MEDS: Tamsulosin CAP* 0.4 MG PO SCH (21:16)
[2018-01-23] MEDS: Heparin VIAL(*) 5000 UNITS/ML VIAL (FIVE THOUSAND) SUBCUT SCH (21:16)
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
[2018-01-24] MEDS: Heparin VIAL(*) 5000 UNITS/ML VIAL (FIVE THOUSAND) SUBCUT SCH ×3 (05:17→21:07)
[2018-01-24] MEDS: Atorvastatin* 10 MG TAB PO SCH (10:10)
[2018-01-24] MEDS: Aspirin EC TAB* 81 MG TAB.EC PO SCH (10:10)
[2018-01-24] MEDS: Finasteride TAB* 5 MG PO SCH (20:59)
[2018-01-24] MEDS: Tamsulosin CAP* 0.4 MG PO SCH (20:59)
[2018-01-25] MEDS: Heparin VIAL(*) 5000 UNITS/ML VIAL (FIVE THOUSAND) SUBCUT SCH ×3 (06:15→20:37)
[2018-01-25] MEDS: Aspirin EC TAB* 81 MG TAB.EC PO SCH (09:29)
[2018-01-25] MEDS: Atorvastatin* 10 MG TAB PO SCH (09:29)
[2018-01-25] MEDS: Tamsulosin CAP* 0.4 MG PO SCH (20:35)
[2018-01-25] MEDS: Finasteride TAB* 5 MG PO SCH (20:35)
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
[2018-01-26] MEDS: Heparin VIAL(*) 5000 UNITS/ML VIAL (FIVE THOUSAND) SUBCUT SCH ×3 (05:14→20:37)
[2018-01-26] MEDS: Atorvastatin* 10 MG TAB PO SCH (07:54)
[2018-01-26] MEDS: Aspirin EC TAB* 81 MG TAB.EC PO SCH (07:54)
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
[2018-01-26] MEDS: Tamsulosin CAP* 0.4 MG PO SCH (20:37)
[2018-01-26] MEDS: Finasteride TAB* 5 MG PO SCH (20:37)
[2018-01-27] MEDS: Heparin VIAL(*) 5000 UNITS/ML VIAL (FIVE THOUSAND) SUBCUT SCH ×3 (06:08→21:38)
[2018-01-27] MEDS: Atorvastatin* 10 MG TAB PO SCH (08:15)
[2018-01-27] MEDS: Aspirin EC TAB* 81 MG TAB.EC PO SCH (08:15)
[2018-01-27] MEDS: Tamsulosin CAP* 0.4 MG PO SCH (21:22)
[2018-01-27] MEDS: Finasteride TAB* 5 MG PO SCH (21:22)
[2018-01-28] MEDS: Heparin VIAL(*) 5000 UNITS/ML VIAL (FIVE THOUSAND) SUBCUT SCH ×3 (05:09→21:58)
[2018-01-28] MEDS: Atorvastatin* 10 MG TAB PO SCH (08:35)
[2018-01-28] MEDS: Aspirin EC TAB* 81 MG TAB.EC PO SCH (08:36)
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
[2018-01-28] MEDS: Finasteride TAB* 5 MG PO SCH (21:59)
[2018-01-28] MEDS: Tamsulosin CAP* 0.4 MG PO SCH (21:59)
[2018-01-29] MEDS: Heparin VIAL(*) 5000 UNITS/ML VIAL (FIVE THOUSAND) SUBCUT SCH ×3 (06:49→21:36)
[2018-01-29] MEDS: Aspirin EC TAB* 81 MG TAB.EC PO SCH (08:40)
[2018-01-29] MEDS: Atorvastatin* 10 MG TAB PO SCH (08:41)
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
[2018-01-29] MEDS: Tamsulosin CAP* 0.4 MG PO SCH (21:31)
[2018-01-29] MEDS: Finasteride TAB* 5 MG PO SCH (21:31)
[2018-01-30] MEDS: Heparin VIAL(*) 5000 UNITS/ML VIAL (FIVE THOUSAND) SUBCUT SCH ×3 (05:22→20:56)
[2018-01-30] MEDS: Atorvastatin* 10 MG TAB PO SCH (09:15)
[2018-01-30] MEDS: Aspirin EC TAB* 81 MG TAB.EC PO SCH (09:15)
[2018-01-30] MEDS: Tamsulosin CAP* 0.4 MG PO SCH (20:55)
[2018-01-30] MEDS: Finasteride TAB* 5 MG PO SCH (20:55)
[2018-01-31] MEDS: Heparin VIAL(*) 5000 UNITS/ML VIAL (FIVE THOUSAND) SUBCUT SCH ×3 (06:26→22:15)
[2018-01-31] MEDS: Atorvastatin* 10 MG TAB PO SCH (08:07)
[2018-01-31] MEDS: Aspirin EC TAB* 81 MG TAB.EC PO SCH (08:07)
[2018-01-31] MEDS: Finasteride TAB* 5 MG PO SCH (22:15)
[2018-01-31] MEDS: Tamsulosin CAP* 0.4 MG PO SCH (22:15)
[2018-02-01] MEDS: Heparin VIAL(*) 5000 UNITS/ML VIAL (FIVE THOUSAND) SUBCUT SCH ×3 (06:19→22:01)
[2018-02-01] MEDS: Atorvastatin* 10 MG TAB PO SCH (10:02)
[2018-02-01] MEDS: Aspirin EC TAB* 81 MG TAB.EC PO SCH (10:02)
[2018-02-01] MEDS: Tamsulosin CAP* 0.4 MG PO SCH (22:01)
[2018-02-01] MEDS: Finasteride TAB* 5 MG PO SCH (22:01)
[2018-02-02] MEDS: Heparin VIAL(*) 5000 UNITS/ML VIAL (FIVE THOUSAND) SUBCUT SCH ×3 (05:49→20:10)
[2018-02-02] MEDS: Atorvastatin* 10 MG TAB PO SCH (07:46)
[2018-02-02] MEDS: Aspirin EC TAB* 81 MG TAB.EC PO SCH (07:46)
[2018-02-02] MEDS: Finasteride TAB* 5 MG PO SCH (20:10)
[2018-02-02] MEDS: Tamsulosin CAP* 0.4 MG PO SCH (20:10)
[2018-02-03] MEDS: Heparin VIAL(*) 5000 UNITS/ML VIAL (FIVE THOUSAND) SUBCUT SCH ×3 (06:17→21:43)
[2018-02-03] MEDS: Atorvastatin* 10 MG TAB PO SCH (10:13)
[2018-02-03] MEDS: Aspirin EC TAB* 81 MG TAB.EC PO SCH (10:14)
[2018-02-03] MEDS: Tamsulosin CAP* 0.4 MG PO SCH (21:43)
[2018-02-03] MEDS: Finasteride TAB* 5 MG PO SCH (21:43)
[2018-02-04] MEDS: Heparin VIAL(*) 5000 UNITS/ML VIAL (FIVE THOUSAND) SUBCUT SCH ×2 (05:50→13:56)
[2018-02-04] MEDS: Aspirin EC TAB* 81 MG TAB.EC PO SCH (08:48)
[2018-02-04] MEDS: Atorvastatin* 10 MG TAB PO SCH (08:49)
[2018-02-04] MEDS ORDERED: Enoxaparin(*) 40 MG/0.4 ML SYR SUBCUT SCH (18:00)
[2018-02-04] MEDS: Finasteride TAB* 5 MG PO SCH (20:00)
[2018-02-04] MEDS: Tamsulosin CAP* 0.4 MG PO SCH (20:00)
[2018-02-05] MEDS: Aspirin EC TAB* 81 MG TAB.EC PO SCH (08:12)
[2018-02-05] MEDS: Atorvastatin* 10 MG TAB PO SCH (08:12)
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
[2018-02-05] MEDS ORDERED: Enoxaparin(*) 40 MG/0.4 ML SYR SUBCUT SCH (20:00)
[2018-02-05] MEDS: Tamsulosin CAP* 0.4 MG PO SCH (21:04)
[2018-02-05] MEDS: Finasteride TAB* 5 MG PO SCH (21:04)
[2018-02-06 08:04] LABS: Hematocrit 44 % (42-52); Hemoglobin 15.3 g/dl (14.0-18.0); Mean Platelet Volume 7.3 um3 (7.4-10.4); Platelet Count 211 10^3/ul (150-450)
[2018-02-06 08:15] LABS: EGFR Non-African American 66.4 (>60)
[2018-02-06] MEDS: Aspirin EC TAB* 81 MG TAB.EC PO SCH (10:16)
[2018-02-06] MEDS: Atorvastatin* 10 MG TAB PO SCH (10:16)
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
[2018-02-06 12:57] VITALS: BP 126/45
== END 2018-02-06 14:15 | DRG 884 ==
LOC: ED 12:34 → MED 17:04
PROVIDERS: ADMIT Internal Medicine; ATTEND Internal Medicine
DX: F03.90 Unspecified dementia, unspecified severity, without behavioral disturbance, psychotic disturbance, mood disturbance, and anxiety (principal); I25.10 Atherosclerotic heart disease of native coronary artery without angina pectoris; E78.5 Hyperlipidemia, unspecified; I10 Essential (primary) hypertension; Z66 Do not resuscitate; N40.0 Benign prostatic hyperplasia without lower urinary tract symptoms; J45.909 Unspecified asthma, uncomplicated; M19.90 Unspecified osteoarthritis, unspecified site; F43.10 Post-traumatic stress disorder, unspecified; H91.90 Unspecified hearing loss, unspecified ear; R41.9 Unspecified symptoms and signs involving cognitive functions and awareness; Z62.819 Personal history of unspecified abuse in childhood; Z79.82 Long term (current) use of aspirin; Z87.891 Personal history of nicotine dependence; I25.2 Old myocardial infarction; Z95.5 Presence of coronary angioplasty implant and graft; Z78.1 Physical restraint status
CPT/HCPCS: 36415; 70450; 71045; 80053; 80307; 80320; 80329; 81003; 82140; 82550; 82565; 83605; 83735; 84443; 84484; 85014; 85018; 85025; 85049; 93005; 99282; A9270-GY; G0480; G8978-GP-CI; G8979-GP-CI; G8980-GP-CI; G8987-GO-CI; G8988-GO-CI; G8989-GO-CI; J1644; J1650

== ENCOUNTER 2018-06-01 10:13 | Emergency (ER) | payer OTHER ==
--- NOTE | 2018-06-01 10:44 | ED ---
Back Pain - HPI Summary HPI Summary: This patient is an 87 year old M presenting to [facility] with a chief complaint of a fall and associated back pain since last PM. LEVEL 5 CAVEAT: Full HPI unobtainable due to pts dementia. This pt comes from [facility]. They state he fell last night and is complaining of back pain. He denies head pain or hitting his head, and arm, abd, shoulder, neck, hip, or leg pain. His daughter called, and she doesnt want frequent vitals done, and forbids the use of needles, as the pt is very needle-phobic. The pt is very [place] , and suffers from dementia. Pt ambulates at baseline. PMHx chronic UTI, and has similar episodes in the past. - History of Current Complaint Chief Complaint: EDGeneral Stated Complaint: BACK PAIN Time Seen by Provider: 06/01/18 10:22 Hx Obtained From: Patient, Family/[employer], Other: - senior care Hx From Patient Unobtainable Due To: Dementia Onset/Duration: Sudden Onset, Lasting Hours, Still Present Onset/Duration: Started Hours Ago, Still Present Timing: Constant Back Pain Location: Is Diffuse - back Severity Currently: Mild Aggravating Symptom(s): Movement Alleviating Symptom(s): Nothing Associated Signs And Symptoms: Negative: Abdominal Pain - Allergies/Home Medications Allergies/Adverse Reactions: Allergies Allergy/AdvReac Type Severity Reaction Status Date / Time No Known Allergies Allergy Verified 09/02/17 14:11 PMH/Surg Hx/FS Hx/Imm Hx Endocrine/Hematology History: Reports: Hx Anemia Cardiovascular History: Reports: Hx Coronary Artery Disease, Hx Hypertension, Hx Myocardial Infarction - 3 weeks ago, Hx Syncope, Other Cardiovascular Problems/Disorders - 01/01/18 syncope and bradycardia, HCL, HLD Respiratory History: Reports: Hx Asthma GI History: Reports: Other GI Disorders - Hx Hernia Repair History: Reports: Hx Benign Prostatic Hyperplasia - Flomax; if not BPH, then urgency and hesitation and some incontinence, Other Problems/Disorders - chronic UTI Musculoskeletal History: Reports: Hx Arthritis Sensory History: Reports: Hx Contacts or Glasses, Hx Deafness, Hx Hearing Problem Denies: Hx Legally Blind, Hx Hearing Aid Opthamlomology History: Reports: Hx Contacts or Glasses Denies: Hx Legally Blind EENT History: Reports: Hx Hearing Problem Neurological History: Reports: Hx Dementia, Other Neuro Impairments/Disorders - L arachnoid cyst per 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 Denies: Hx Eating Disorder - Surgical History Surgery Procedure, Year, and Place: Multiple Hernia Repairs. [address] Infectious Disease History: Unable to Obtain/Confirm Infectious Disease History: Denies: Traveled Outside the [place] in Last 30 Days - Family History Known Family History: Positive: Unknown - due to level 5 caveat - pt has dementia, Other - due to level 5 caveat - pt has dementia - Social History Occupation: Retired Lives: At [employer] Alcohol Use: None Hx Substance Use: No Substance Use Type: Reports: None Hx Tobacco Use: Yes Smoking Status (MU): Former Smoker - Additional Comments History Additional Comments: LEVEL 5 CAVEAT: full Hx unobtainable due to patient's dementia. Review of Systems - ROS Summary Review of Systems Summary: LEVEL 5 CAVEAT: Full ROS unobtainable due to pt's dementia. Negative: Fever Negative: Chest Pain Negative: Abdominal Pain Positive: no symptoms reported Positive: Myalgia - back pain. Negative: Arthralgia - arm, shoulder, hip, neck , leg pain Negative: Headache All Other Systems Reviewed And Are Negative: No Physical Exam - Summary Physical Exam Summary: Appearance: Well appearing, Skin: warm, dry, reflects adequate perfusion Head/face: normal Eyes: EOMI, EDWARD ENT: dry mucous membranes Neck: supple, non-tender Respiratory: CTA, breath sounds present Cardiovascular: RRR, pulses symmetrical Abdomen: non-tender, soft Bowel: present Musculoskeletal: normal, strength/ROM intact Neuro: sensory motor intact, alert and confused Triage Information Reviewed: Yes Vital Signs On Initial Exam: Initial Vitals Temp Pulse Resp BP Pulse Ox 99.5 F 59 20 115/62 94 06/01/18 10:24 06/01/18 10:24 06/01/18 10:24 06/01/18 10:24 06/01/18 10:24 Vital Signs Reviewed: Yes Completion Of Physical Exam Limited Due To: Dementia Diagnostics - Vital Signs Vital Signs Temp Pulse Resp BP Pulse Ox 06/01/18 10:24 99.5 F 59 20 115/62 94 - Laboratory Lab Statement: Any lab studies that have been ordered have been reviewed, and results considered in the medical decision making process. - Radiology XR pelvis Radiology Interpretation Completed By: Radiologist - Moderate degree of degenerative changes of both hips. No definite hip fracture is noted although if there is persistent clinical symptoms concerning further examination may be warranted. Dr. Murillo has reviewed this report. - CT Brain CT Interpretation: No Acute Changes CT Interpretation Completed By: Radiologist - No evidence for acute intracranial abnormality. Dr. Murillo has reviewed this report. L-spine CT Interpretation Completed By: Radiologist - Negative for lumbar sacral spine fracture or spondylolisthesis. 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 Ectatic abdominal aorta. Incomplete assessment of the inferior abdominal aorta as noted. If clinically indicated the aorta could be further assessed with ultrasound. Dr. Murillo has reviewed this report. Back Pain Course/Dx - Course Course Of Treatment: An 87-year-old M presents to the ED with a CC of back pain s/p a fall last PM. (+) back pain. (-) arm, shoulder, leg, hip, abd, and neck pain. He denies hitting his head or head ache. Fell at [facility], his daughter endorses pt has a fear of needle and forbids bloodwork/IV and frequent vitals. Pt ambulates at baseline. A pelvis XR reveals Moderate degree of degenerative changes of both hips. No definite hip fracture is noted. A CT brain was (-). A CT L-spine revealsNegative for lumbar sacral spine fracture or spondylolisthesis. 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 Ectatic abdominal aorta. Incomplete assessment of the inferior abdominal aorta as noted. pt family refused labs and iv lines. - Diagnoses Differential Diagnosis/HQI/PQRI: Positive: Strain, Other - fall/intracranial bleeding Provider Diagnoses: Fall, Dementia Discharge - Sign-Out/Discharge Documenting (check all that apply): Patient Departure - Discharge Plan Condition: Stable Disposition: HOME Patient Education Materials: Dementia (ED), Fall Prevention for Older Adults ( ED) Referrals: Gayle Hughes MD [Primary Care Provider] - 3 Days Additional Instructions: Return to the emergency department for any new or worsening symptoms. - Billing Disposition and Condition Condition: STABLE Disposition: Home - Attestation Statements Document Initiated by Scribe: Yes Documenting Scribe: Adan Crandall Provider For Whom Scribe is Documenting (Include Credential): Dr. John Murillo MD Scribe Attestation: I, Adan Crandall, scribed for Dr. John Murillo MD on 06/01/18 at 1204. Scribe Documentation Reviewed: Yes Provider Attestation: The documentation as recorded by the Adan hunt accurately reflects the service I personally performed and the decisions made by me, Dr. John Murillo MD
--- NOTE | 2018-06-01 11:09 | RAD ---
INDICATION: Head injury, dementia. COMPARISON: Comparison is made to prior CT of the brain from January 23, 2018. TECHNIQUE: Contiguous axial sections of the brain were obtained from the skull base to the vertex without contrast. FINDINGS: The ventricles, cisterns and sulci are enlarged consistent with diffuse atrophy. There are small areas of decreased density in the subcortical and periventricular white matter suggestive of mild chronic small vessel ischemic changes. There is a CSF density area present adjacent to the left temporal lobe tip measuring 3.3 cm in diameter unchanged most consistent with an arachnoid cyst. There is no evidence for hemorrhage. No significant focal osseous abnormality is seen. The visualized portion of the paranasal sinuses and mastoid air cells appear clear. IMPRESSION: NO EVIDENCE FOR ACUTE INTRACRANIAL ABNORMALITY.
--- NOTE | 2018-06-01 11:29 | RAD ---
Indication: Back pain post fall last night. Comparison: No relevant prior exams available on the [facility] PACS for comparison. Technique: Noncontrast CT lumbar sacral spine. Multiplanar reformation. Report: Mild consolidation at the dependent portion of the RIGHT lung base. Differential includes atelectasis as well as inflammatory infiltrates. Small dependent RIGHT pleural effusion. There is fusiform expansion of the infrarenal abdominal aorta however the aorta is not fully included in the [id number] anteriorly limiting assessment. Upper normal diameter of the LEFT common iliac artery. 1.9 cm cortical cyst upper pole RIGHT kidney. Parapelvic cyst mid pole LEFT kidney. Moderate bilateral renal cortical atrophy. Negative for hydronephrosis. Negative for paravertebral hematoma. Negative for fracture or spondylolysis at any level. Normal vertebral alignment without spondylolisthesis at any level. T12-L1: Degenerative spondylosis and facet joint osteoarthritis. Negative for acquired spinal stenosis. L1-L2: Unremarkable disc level for age without acquired spinal stenosis. L2-L3: Mild disc space narrowing and annular disc bulge. Mild facet joint osteoarthritis. Negative for significant resulting acquired spinal stenosis. L3-L4: Annular disc bulge. Facet ligamentous hypertrophic arthropathy. Resulting moderately severe acquired central canal stenosis and mild bilateral foraminal stenosis. L4-L5: Annular disc bulge. Facet ligamentous hypertrophic arthropathy. Resulting moderately severe acquired central canal stenosis and moderate bilateral foraminal stenosis. L5-S1: Mild annular disc bulge. Facet ligamentous hypertrophic arthropathy. Resulting moderately severe acquired central canal stenosis and moderate bilateral foraminal stenosis. IMPRESSION: #. Negative for lumbar sacral spine fracture or spondylolisthesis. #. 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 #. Ectatic abdominal aorta. Incomplete assessment of the inferior abdominal aorta as noted. If clinically indicated the aorta could be further assessed with ultrasound.
--- NOTE | 2018-06-01 11:33 | RAD ---
Indication: Fall, hip pain and dementia. Single view of the pelvis is reviewed. The pelvic ring is intact. There is mild osteopenia noted with moderate degenerative changes of both hips. No definite fracture is identified. Sacroiliac joints and lower lumbar spine are grossly unremarkable. IMPRESSION: Moderate degree of degenerative changes of both hips. No definite hip fracture is noted although if there is persistent clinical symptoms concerning further examination may be warranted.
[2018-06-01] MEDS ORDERED: Acetaminophen TAB* 325 MG PO ONE (12:06)
[2018-06-01 12:34] VITALS: BP 141/61
== END 2018-06-01 12:35 | disposition home or self-care (01) ==
LOC: ED 10:13
DX: M54.9 Dorsalgia, unspecified (principal); W19.XXXA Unspecified fall, initial encounter; Y92.9 Unspecified place or not applicable; F03.90 Unspecified dementia, unspecified severity, without behavioral disturbance, psychotic disturbance, mood disturbance, and anxiety; M47.816 Spondylosis without myelopathy or radiculopathy, lumbar region; I25.2 Old myocardial infarction; I77.819 Aortic ectasia, unspecified site; Z95.5 Presence of coronary angioplasty implant and graft; Z87.440 Personal history of urinary (tract) infections; Z87.891 Personal history of nicotine dependence
CPT/HCPCS: 70450; 72131; 72170; 99282; A9270-GY

== ENCOUNTER 2021-03-31 15:23 | Inpatient (IN) ==
[2021-03-31 16:27] LABS: Urine Appearance Cloudy; Urine Bilirubin Negative (Negative); Urine Blood 1+ (Negative); Urine Color Yellow; Urine Glucose Negative (Negative); Urine Ketones Negative (Negative); Urine Nitrite Positive (Negative); Urine Protein Negative (Negative); Urine Specific Gravity 1.012 (1.002-1.030); Urine Urobilinogen Negative (Negative)
[2021-03-31 16:34] LABS: Urine Bacteria Absent (Absent); Urine Red Blood Cell 3+(>10/hpf) (Absent); Urine White Blood Cell 3+(>20/hpf) (Absent)
[2021-03-31] MEDS ORDERED: Piperacillin/Tazobac ADVAN 3.375 GM in NS 0.9% 100 ml BAG 100 ML IV ONE (17:47)
[2021-03-31 18:51] LABS: ABS Eosinophils 0.2 10^3/ul (0-0.6); ABS Lymphocytes 1.7 10^3/ul (1.0-4.8); ABS Monocytes 0.6 10^3/ul (0-0.8); ABS Neutrophils 3.9 10^3/ul (1.5-7.7); Eosinophil % 2.5 %; Hematocrit 37 % (42-52); Hemoglobin 12.9 g/dL (14.0-18.0); Lymphocyte % 26.4 %; Mean Corpuscular HGB Conc 35 g/dL (31-36); Mean Corpuscular Hemoglobin 33 pg (27-31); Mean Corpuscular Volume 95 fL (80-94); Mean Platelet Volume 8.2 fL (7.4-10.4); Platelet Count 319 10^3/uL (150-450); Red Blood Count 3.92 10^6 /uL (4.18-5.48); Red Cell Distribution Width 13 % (10-15); White Blood Count 6.4 10^3/uL (3.5-10.8)
[2021-03-31 19:09] LABS: Albumin 3.9 g/dL (3.2-5.2); Albumin/Globulin Ratio 1.1 (1-3); Calcium 9.3 mg/dL (8.6-10.3); EGFR African American 86.3 (>60); EGFR Non-African American 71.3 (>60); Globulin 3.5 g/dL (2-4); Total Bilirubin 0.3 mg/dL (0.2-1.0); Total Protein 7.4 g/dL (6.4-8.9)
[2021-03-31 19:11] LABS: Potassium 5.1 mmol/L (3.5-5.0)
[2021-03-31] MEDS ORDERED: Heparin 5000 UNITS/ML 1 mL VIAL SUBCUT SCH (22:00)
[2021-04-01] MEDS ORDERED: cefTRIAXone 1 gm/50 mL NS BAG 1 GM/50 ML BAG IVPB SCH
[2021-04-01] MEDS: Enoxaparin 40 MG/0.4 ML SYR SUBCUT SCH ×2 (00:35→21:16)
[2021-04-01 05:44] LABS: ABS Basophils 0.1 10^3/ul (0-0.2); ABS Eosinophils 0.2 10^3/ul (0-0.6); ABS Lymphocytes 1.4 10^3/ul (1.0-4.8); ABS Monocytes 0.6 10^3/ul (0-0.8); ABS Neutrophils 4.2 10^3/ul (1.5-7.7); Eosinophil % 2.4 %; Hematocrit 34 % (42-52); Hemoglobin 11.8 g/dL (14.0-18.0); Lymphocyte % 21.6 %; Mean Corpuscular HGB Conc 35 g/dL (31-36); Mean Corpuscular Hemoglobin 33 pg (27-31); Mean Corpuscular Volume 94 fL (80-94); Mean Platelet Volume 8.3 fL (7.4-10.4); Platelet Count 294 10^3/uL (150-450); Red Blood Count 3.63 10^6 /uL (4.18-5.48); Red Cell Distribution Width 13 % (10-15); White Blood Count 6.3 10^3/uL (3.5-10.8)
[2021-04-01 06:05] LABS: Calcium 8.8 mg/dL (8.6-10.3); EGFR African American 82.5 (>60); EGFR Non-African American 68.2 (>60); Magnesium 2.1 mg/dL (1.9-2.7); Potassium 4.1 mmol/L (3.5-5.0)
[2021-04-01] MEDS ORDERED: Polyethylene Glycol 3350 17 GM PACKET PO PRN (07:20)
[2021-04-01] MEDS ORDERED: Senna TAB 8.6 mg TAB PO PRN (07:20)
[2021-04-01] MEDS ORDERED: NS 0.9% 1000 ml BAG 1,000 ML IV SCH (11:30)
[2021-04-01] MEDS: Aspirin EC 81 mg TAB.EC (enteric coated) PO SCH (13:25)
[2021-04-01] MEDS: Cefepime 2 GM in Dextrose 2 GM/50 ML BAG IV SCH (19:17)
[2021-04-02] MEDS: Cefepime 2 GM in Dextrose 2 GM/50 ML BAG IV SCH ×2 (05:34→17:05)
[2021-04-02 07:13] LABS: ABS Basophils 0.1 10^3/ul (0-0.2); ABS Eosinophils 0.2 10^3/ul (0-0.6); ABS Lymphocytes 1.6 10^3/ul (1.0-4.8); ABS Monocytes 0.6 10^3/ul (0-0.8); ABS Neutrophils 3.5 10^3/ul (1.5-7.7); Eosinophil % 3.6 %; Hematocrit 33 % (42-52); Hemoglobin 11.6 g/dL (14.0-18.0); Lymphocyte % 26.6 %; Mean Corpuscular HGB Conc 35 g/dL (31-36); Mean Corpuscular Hemoglobin 33 pg (27-31); Mean Corpuscular Volume 93 fL (80-94); Mean Platelet Volume 7.8 fL (7.4-10.4); Platelet Count 270 10^3/uL (150-450); Red Blood Count 3.57 10^6 /uL (4.18-5.48); Red Cell Distribution Width 13 % (10-15); White Blood Count 5.8 10^3/uL (3.5-10.8)
[2021-04-02 07:25] LABS: Calcium 8.9 mg/dL (8.6-10.3); EGFR African American 85.3 (>60); EGFR Non-African American 70.5 (>60); Potassium 4.4 mmol/L (3.5-5.0)
[2021-04-02] MEDS: Aspirin EC 81 mg TAB.EC (enteric coated) PO SCH (10:03)
[2021-04-02] MEDS: Enoxaparin 40 MG/0.4 ML SYR SUBCUT SCH (22:09)
[2021-04-03] MEDS: Cefepime 2 GM in Dextrose 2 GM/50 ML BAG IV SCH (05:42)
[2021-04-03] MEDS: Aspirin EC 81 mg TAB.EC (enteric coated) PO SCH (08:13)
[2021-04-03 08:36] VITALS: BP 119/42
== END 2021-04-03 14:15 | disposition home or self-care (01) | DRG 690 ==
LOC: ED 15:23 → MED 19:09 → INTOOBSV 19:09
PROVIDERS: ADMIT Internal Medicine; ATTEND Hospitalist

== ENCOUNTER 2021-06-09 11:37 | Observation (INO) ==
[2021-06-09] MEDS ORDERED: NS 0.9% 1000 ml BAG 1,000 ML IV ONE (11:39)
[2021-06-09] MEDS ORDERED: Iodixanol (CONTRAST) 320 MG/ML 100 ML SDV IV ONE (11:59)
[2021-06-09 12:04] LABS: Hematocrit 39 % (42-52); Hemoglobin 13.4 g/dL (14.0-18.0); Mean Corpuscular HGB Conc 34 g/dL (31-36); Mean Corpuscular Hemoglobin 31 pg (27-31); Mean Corpuscular Volume 92 fL (80-94); Mean Platelet Volume 7.2 fL (7.4-10.4); Platelet Count 252 10^3/uL (150-450); Red Cell Distribution Width 14 % (10-15); White Blood Count 13.4 10^3/uL (3.5-10.8)
[2021-06-09 12:18] LABS: Activated Partial Thrombo Time 31.5 seconds (26.0-38.0); INR 1.1 (0.86-1.15)
[2021-06-09 12:22] LABS: Albumin/Globulin Ratio 1.2 (1-3); Calcium 9.3 mg/dL (8.6-10.3); Globulin 3.3 g/dL (2-4); Potassium 4.7 mmol/L (3.5-5.0); Total Bilirubin 0.8 mg/dL (0.2-1.0); Total Protein 7.3 g/dL (6.4-8.9)
[2021-06-09 12:23] LABS: Troponin I 0.01 ng/mL (<0.03)
[2021-06-09] MEDS ORDERED: Lactated Ringers 1000 ml BAG 1,000 ML IV ONE (12:37)
[2021-06-09 14:03] LABS: ABS Lymphocytes 1.4 10^3/ul (1.0-4.8); ABS Monocytes 1.6 10^3/ul (0-0.8); ABS Neutrophils 10.3 10^3/ul (1.5-7.7); Eosinophil % 0.2 %; Lymphocyte % 10.6 %
[2021-06-09 14:43] LABS: Rapid COVID-19 Molecular Undetected (Undetected)
[2021-06-09 15:20] LABS: Urine Appearance Cloudy; Urine Bilirubin Negative (Negative); Urine Blood 3+ (Negative); Urine Color Yellow; Urine Glucose Negative (Negative); Urine Ketones Negative (Negative); Urine Nitrite Negative (Negative); Urine Protein Negative (Negative); Urine Specific Gravity 1.025 (1.002-1.030); Urine Urobilinogen Negative (Negative)
[2021-06-09 15:38] LABS: Urine Bacteria Absent (Absent); Urine Red Blood Cell 3+(>10/hpf) (Absent); Urine White Blood Cell 3+(>20/hpf) (Absent)
[2021-06-09] MEDS ORDERED: cefTRIAXone 1 gm/50 mL NS BAG 1 GM/50 ML BAG IV ONE (16:00)
[2021-06-09] MEDS ORDERED: Ciprofloxacin 400mg IVPREMIX 400 MG/200 ML BAG IVPB ONE (16:58)
[2021-06-09] MEDS ORDERED: Lactated Ringers 500 ml BAG 500 ML IV ONE (18:25)
[2021-06-09] MEDS ORDERED: Lactated Ringers 1000 ml BAG 1,000 ML IV SCH (23:00)
[2021-06-09] MEDS ORDERED: Enoxaparin 40 MG/0.4 ML SYR SUBCUT SCH (23:00)
[2021-06-09 23:38] LABS: C Reactive Protein 89.2 mg/L (<8.01)
[2021-06-10] MEDS ORDERED: Lorazepam PYXIS KEY PRN (04:06)
[2021-06-10] MEDS ORDERED: LORazepam 2 mg VIAL 1 ml IM ONE (04:06)
[2021-06-10] MEDS ORDERED: Lorazepam PYXIS KEY ONE (04:08)
[2021-06-10] MEDS ORDERED: LORazepam 2 mg VIAL 1 ml ONE (04:10)
[2021-06-10 04:43] VITALS: BP 131/50
[2021-06-10] MEDS ORDERED: COVID-19 VACCINE, MRNA(PFIZER)/PF 30 MCG/0.3 ML IM ONE (14:00)
[2021-06-10] MEDS ORDERED: Ciprofloxacin 400mg IVPREMIX 400 MG/200 ML BAG IVPB SCH (18:00)
== END 2021-06-10 11:30 | disposition home or self-care (01) ==
LOC: MED 11:37 → ED 11:37 → MED 06-10 00:13
PROVIDERS: ADMIT Internal Medicine; ATTEND Internal Medicine

== ENCOUNTER 2021-07-04 21:57 | Observation (INO) ==
[2021-07-04] MEDS ORDERED: Lactated Ringers 1000 ml BAG 1,000 ML IV ONE (22:16)
[2021-07-04] MEDS ORDERED: LORazepam 2 mg VIAL 1 ml ONE (22:32)
[2021-07-04] MEDS ORDERED: Lorazepam PYXIS KEY PRN (22:39)
[2021-07-04] MEDS ORDERED: LORazepam 2 mg VIAL 1 ml IM ONE (22:39)
[2021-07-04] MEDS ORDERED: Haloperidol 5 mg/ml SDV IV/IM 5 MG/ML AMP IM ONE (23:13)
[2021-07-05] MEDS ORDERED: Lorazepam PYXIS KEY PRN (00:08)
[2021-07-05] MEDS ORDERED: LORazepam 2 mg VIAL 1 ml IM ONE (00:08)
[2021-07-05 00:22] LABS: Rapid COVID-19 Molecular Undetected (Undetected)
[2021-07-05 01:07] LABS: ABS Eosinophils 0.2 10^3/ul (0-0.6); ABS Lymphocytes 1.1 10^3/ul (1.0-4.8); ABS Monocytes 1.1 10^3/ul (0-0.8); ABS Neutrophils 8.1 10^3/ul (1.5-7.7); Eosinophil % 1.4 %; Hematocrit 41 % (42-52); Lymphocyte % 10.7 %; Mean Corpuscular HGB Conc 34 g/dL (31-36); Mean Corpuscular Hemoglobin 31 pg (27-31); Mean Corpuscular Volume 92 fL (80-94); Mean Platelet Volume 7.4 fL (7.4-10.4); Platelet Count 234 10^3/uL (150-450); Red Blood Count 4.49 10^6 /uL (4.18-5.48); Red Cell Distribution Width 14 % (10-15); White Blood Count 10.6 10^3/uL (3.5-10.8)
[2021-07-05 01:24] LABS: Albumin 4.2 g/dL (3.2-5.2); Albumin/Globulin Ratio 1.1 (1-3); Calcium 9.8 mg/dL (8.6-10.3); Globulin 3.8 g/dL (2-4); Potassium 4.5 mmol/L (3.5-5.0); Total Bilirubin 0.9 mg/dL (0.2-1.0)
[2021-07-05 01:50] LABS: Urine Appearance Cloudy; Urine Bilirubin Negative (Negative); Urine Blood 3+ (Negative); Urine Color Yellow; Urine Glucose Negative (Negative); Urine Ketones Negative (Negative); Urine Nitrite Negative (Negative); Urine Protein 3+(>=500 mg/dL) (Negative); Urine Specific Gravity 1.018 (1.002-1.030); Urine Urobilinogen Negative (Negative)
[2021-07-05 01:58] LABS: Urine Bacteria 1+ (Absent); Urine Red Blood Cell 3+(>10/hpf) (Absent); Urine White Blood Cell 3+(>20/hpf) (Absent)
[2021-07-05] MEDS ORDERED: Piperacillin/Tazobac ADVAN 3.375 GM in NS 0.9% 100 ml BAG 100 ML IV ONE (02:42)
[2021-07-05] MEDS ORDERED: CIPROFLOXACIN 250 MG/5 ML PO ONE (04:11)
[2021-07-05] MEDS ORDERED: ORALSYR PO ONE (05:00)
[2021-07-05] MEDS ORDERED: CIPROFLOXACIN PO ONE (05:00)
[2021-07-05] MEDS ORDERED: CIPROFLOXACIN 250 MG/5 ML PO SCH (09:00)
[2021-07-05] MEDS ORDERED: Enoxaparin 40 MG/0.4 ML SYR SUBCUT SCH (12:00)
[2021-07-05] MEDS: NS 0.9% 1000 ml BAG 1,000 ML IV SCH (18:23)
[2021-07-06] MEDS: NS 0.9% 1000 ml BAG 1,000 ML IV SCH (01:44)
[2021-07-06] MEDS ORDERED: ZOSYN 3.375 GM x ONE DOSE over 30 miuntes IV (09:00)
[2021-07-06] MEDS ORDERED: Zosyn per Pharmacy NOTE FOLLOW UP SCH (09:00)
[2021-07-06] MEDS ORDERED: ZOSYN 3.375 GM Q8H per EXTENDED INFUSION IV SCH (13:00)
[2021-07-06 17:40] VITALS: BP 117/55
[2021-07-06] MEDS ORDERED: Enoxaparin 40 MG/0.4 ML SYR SUBCUT SCH (21:00)
== END 2021-07-06 20:45 | disposition home or self-care (01) ==
LOC: ED 21:57 → MED 21:57 → INTOOBSV 07-05 10:42 → SUATTDRO 07-05 10:42 → EDHOLD 07-05 10:42
PROVIDERS: ADMIT Internal Medicine; ATTEND Hospitalist